=== PATIENT | female | born 1960 | race Caucasian/White ===

== ENCOUNTER 2016-11-28 14:08 | Inpatient (IN) | payer MEDICAID, OTHER ==
[2016-11-28 15:01] LABS: Hematocrit 40 % (35-47); Hemoglobin 12.9 g/dl (12.0-16.0); Mean Corpuscular HGB Conc 33 g/dl (31-36); Mean Corpuscular Hemoglobin 27 pg (27-31); Mean Corpuscular Volume 84 fL (80-97); Mean Platelet Volume 8 um3 (7.4-10.4); Red Blood Count 4.73 10^6/ul (4.0-5.4); Red Cell Distribution Width 13 % (10.5-15); White Blood Count 6.3 10^3/ul (3.5-10.8)
[2016-11-28 15:04] LABS: Urine Bilirubin Negative (Negative); Urine Glucose Negative (Negative); Urine Nitrite Negative (Negative)
[2016-11-28 15:18] LABS: ALT 14 U/L (7-52); AST 16 U/L (13-39); Albumin 4.3 g/dL (3.2-5.2); Alkaline Phosphatase 72 U/L (34-104); Anion Gap 6 mmol/L (2-11); BUN/Creatinine Ratio 14.4 (8-20); Blood Urea Nitrogen 13 mg/dL (6-24); CO2 Carbon Dioxide 27 mmol/L (22-32); Calcium 9.6 mg/dL (8.6-10.3); Chloride 99 mmol/L (101-111); EGFR African American 83.6 (>60); Globulin 2.8 g/dL (2-4); Glucose 98 mg/dL (70-100); Potassium 3.8 mmol/L (3.5-5.0); Sodium 132 mmol/L (133-145); Total Protein 7.1 g/dL (6.4-8.9)
[2016-11-28 15:24] LABS: Benzodiazepine Urine Screen None Detected (None Detect)
[2016-11-28 15:38] LABS: Acetaminophen < 15 mcg/mL; Alcohol < 10 mg/dL (<10); Salicylate < 2.50 mg/dL (<30)
[2016-11-28 15:48] LABS: TSH (Thyroid Stimulating Horm) 0.58 mcIU/mL (0.34-5.60)
[2016-11-28] MEDS ORDERED: Al Hydrox/Mg Hydrox/Simet LIQ* 30 ML UDC PO PRN (15:57)
[2016-11-28] MEDS ORDERED: Nicotine Inhaler* 10 MG AMP INH PRN (15:57)
[2016-11-28] MEDS ORDERED: Mouth Piece, Nicotine* 1 EACH CARTRIDGE INH ONE (18:00)
[2016-11-28] MEDS ORDERED: QUETIAPINE FUMARATE 800 MG PO SCH (21:00)
[2016-11-28] MEDS: QUEtiapine TAB* 300 MG PO SCH (21:23)
[2016-11-28] MEDS: QUEtiapine TAB* 100 MG PO SCH (21:24)
[2016-11-29] MEDS ORDERED: Levothyroxine TAB* 100 MCG TAB PO SCH (06:00)
[2016-11-29] MEDS: Venlafaxine EXT RELEASE CAP* 75 MG PO SCH (09:00)
[2016-11-29] MEDS: Vitamin THERAPEUTIC TAB PO SCH (09:10)
[2016-11-29] MEDS: Docusate CAP* 100 MG PO SCH ×2 (11:53→21:29)
[2016-11-29] MEDS: QUEtiapine TAB* 100 MG PO SCH ×2 (11:53→21:32)
--- NOTE | 2016-11-29 13:03 | HP ---
HISTORY AND PHYSICAL: DATE OF ADMISSION: 11/29/16 IDENTIFYING DATA: Nadege Burrell is a 56-year-old domiciled mentally disabled female with history of chronic psychotic disorder, depression, suicidal behavior , and multiple psychiatric hospitalizations. She is admitted to the psychiatric unit about 6 months after her last psychiatric admission, having come to the emergency room by ambulance with chief complaint, "I just don't want to live any more." HISTORY OF PRESENT ILLNESS: Nadege reports struggling basically the entire interval since her last psychiatric hospitalization, saying that she has a hard time getting out and functioning and doing things, hard time socializing, and has felt generally depressed and not motivated. She had more difficulty this month after her mother from a medical illness. She reported a lot of reunion fantasies, feeling like if she , she would be with her mother. She endorsed a lot of psychotic symptoms too. Initially she said she was "sleep - walking" and ended up in neighbor's house, but she told me that she felt like she was hearing the voice of an [place] spirit that was commanding her to do things and the spirit said it would take care of her. In the emergency room, she reported putting a belt around her neck and trying to choke herself and then going to the mental health clinic. She said that she had hallucination of "voices" that said they were the " committee" and they threatened her that if she did not take her own life, someone else would kill her. She reports low energy, hopelessness, helplessness, and feelings of worthlessness at times. She additionally reported moderate anxiety. She denied other mental symptoms or new health problems. She denied use of alcohol or drugs. She reported adherence with her medications in clinic visits and was somewhat hopeful that she could get better in the hospital. PREVIOUS PSYCHIATRIC HISTORY: Chronic psychotic disorder. First psychiatric hospitalization in 1992 due to depression and thoughts of suicide, has had about 10 other psychiatric hospitalizations including state hospital treatment. She has had diagnosis of schizophrenia, chronic paranoid type. She has a history of para-suicidal behavior and self-cutting. She has a history of ECT treatment, which may have been helpful but resulted in some memory problems. Previous medication trials included Latuda, lorazepam, Wellbutrin, risperidone, clozapine. PAST MEDICAL HISTORY: History of Tamara's thyroiditis and subsequent hypothyroidism. DRUG ALLERGIES: CLOZAPINE, CODEINE, DOXYCYCLINE, IBUPROFEN, PENICILLINS. SUBSTANCE USE HISTORY: She has denied alcohol or drug use on recent evaluations. FAMILY PSYCHIATRIC HISTORY: by suicide in maternal great-grandfather and maternal great-aunt. SOCIAL HISTORY: Nadege was born in [place]. Her parents when she was 4. Her mother recently . Her mother was a nurse in the [employer] and father was a army helicopter pilot. She is the third of 4 children. She had an older brother, an older sister, and a younger sister. She graduated from high school and has had odd jobs in the past. She has never and has no children. Over the last decade, she has had a significant other in her life. She resides alone and enjoys reading as a pastime. REVIEW OF SYSTEMS: Negative for neurological symptoms, seizures, respiratory difficulties or chest pain. Negative for syncope, negative for gastrointestinal distress, musculoskeletal problems, apart from a swollen knuckle on her right hand and some aches and pains, and negative for skin problems. She reported a couple of falls. PHYSICAL ASSESSMENT: VITAL SIGNS: Temperature is 98.2, blood pressure 112/67, pulse 66, respiratory rate 178. PHYSICAL EXAMINATION Deferred. Nadege declined the examination citing lack of subjective need and her own preference. This is a reasonable refusal in a healthy person and does not require followup. She has been medically cleared for psychiatric hospitalization. MENTAL STATUS EXAMINATION: Well-developed and nourished, middle-aged female, who is fairly well-kempt with normal hygiene in hospital scrub clothing. She has decreased psychomotor activity and is somewhat psychotically related and needy. She maintains fair eye contact. Speech is terse and nonspontaneous with some longer latencies at times. Mood is "concerned." Affect is tense and mildly dysphoric. Thought process is impoverished. Thought content significant for paranoid-type ideation, endorsement of recent delusional fantasy, and hallucination. There are passive wishes and reunion fantasies. There is no homicidal ideation. Sensorium is currently clear, but she did have recent "voices." She is alert and oriented x3. Insight and judgment is poor, and impulse control is intact. ADMISSION LABORATORY STUDIES: CBC was normal. Comprehensive panel had sodium of 131 and chloride at 99. TSH was normal. Urinalysis had specific gravity of 1.002 and toxicology screen was negative for Tylenol, alcohol, or salicylates. Urine drug screen was negative. CLINICAL SUMMARY: A 56-year-old female with chronic psychotic disorder and chronic mood condition and mental disability. She has a history of parasuicidal behavior and self-injury along with a family history of suicide in 2 remote relatives. She generally has had poor result with medication and has had some apparent treatment resistant symptoms. She continues in a subacute period of impairment with the acute stress of her mother passing away recently, and she has depression, psychotic functioning, and psychotic informed behavior; along with suicidal ideation and report of recent suicidal gesturing with putting something around her neck. She requires psychiatric hospitalization for safety, stabilization and treatment plan. ADMISSION DIAGNOSES: 1. Schizophrenia, chronic paranoid type. 2. Depressive disorder, not otherwise specified. TREATMENT PLAN: Admit to the psychiatric unit. Code status is full. Safety checks every 15-minute intervals. Initiate comprehensive, group, milieu, and individual psychotherapeutic support. Medication management will involve continuing Nadege's outpatient medication regimen as follows: 1. Wellbutrin 150 mg p.o. q.a.m. (XL formula). 2. Colace 100 mg b.i.d. 3. Levothyroxine 100 mcg daily. 4. Quetiapine 200 mg q.a.m. and 800 mg q. bedtime. 5. Venlafaxine XR 150 mg per day. [id number]/[facility] #: [id number] MTDD
[2016-11-29] MEDS ORDERED: QUETIAPINE FUMARATE 800 MG PO SCH (21:00)
[2016-11-29] MEDS: QUEtiapine TAB* 300 MG PO SCH (21:31)
[2016-11-29] MEDS: Acetaminophen TAB* 325 MG PO PRN (22:58)
[2016-11-30] MEDS: Levothyroxine TAB* 100 MCG TAB PO SCH (06:15)
[2016-11-30] MEDS: QUEtiapine TAB* 100 MG PO SCH ×2 (09:35→21:43)
[2016-11-30] MEDS: Vitamin THERAPEUTIC TAB PO SCH (09:35)
[2016-11-30] MEDS: Venlafaxine EXT RELEASE CAP* 75 MG PO SCH (09:36)
[2016-11-30] MEDS: Docusate CAP* 100 MG PO SCH ×2 (09:36→21:43)
[2016-11-30] MEDS: BuPROPion XL* 150 MG TAB.XL PO SCH (09:37)
--- NOTE | 2016-11-30 13:49 | PN ---
Subjective - Subjective Service Type: 56974 Hosp care 15 min low complexity Subjective: Today I had the opportunity to visit Amelia on follow-up. She was quite tearful and discussed how she is feeling guilty secondary to not being present in [place] when her mother . She Admits to intermittent suicidal ideation, but denies intent or plan. She did report good sleep, but reports poor appetite. Objective - Appearance Dysmorphic Features: No Hygiene: Normal Grooming: Well Kept - Behavior Psychomotor Activities: Normal Exhibits Abnormal Movement: No - Attitude and Relatedness Attitude and Relatedness: Cooperative Eye Contact: Fair - Speech Quality: Unpressured Latencies: Normal Quantity: Appropriate - Mood Patient's Decription of Mood: "Sad" - Affect Observed Affect: Tearful Affect Consistent with: Dysphoria - Thought Process Patient's Thought Process: Tangential - at times Thought Content: Yes Passive Wish, No Suicidal Planning, No Homicidal Ideation, No Paranoid Ideation - Sensorium Type of Hallucinations: Visual: No - denies, Auditory: No - denies, Command: No - denies - Level of Consciousness Level of Consciousness: Alert Orientation: Yes Intact - Impulse Control Impulse Control: Intact - Insight and Judgement Insight and Judgement: Poor Assessment - Assessment Clinical Impression: Patient continues to be tearful, articulates feelings of guilt. Good PO medication compliance. Plan - Plan Treatment Plan: Name: AMELIA CASTRO Birthdate: 1960 [id number] Medications: Current Medications Acetaminophen (Tylenol Tab*) 650 mg PO Q4H PRN PRN Reason: for pain; or Temp >101 F Last Admin: 11/29/16 22:58 Dose: 650 mg Al Hydrox/Mg Hydrox/Simethicone (Maalox Plus*) 30 ml PO Q4H PRN PRN Reason: INDIGESTION Bupropion HCl (Wellbutrin Xl *) 150 mg PO QAM [facility] PRN Reason: Protocol Last Admin: 11/30/16 09:37 Dose: 150 mg Docusate Sodium (Colace Cap*) 100 mg PO BID [facility] Last Admin: 11/30/16 09:36 Dose: 100 mg Levothyroxine Sodium (Synthroid Tab*) 100 mcg PO DAILY@0600 [facility] Last Admin: 11/30/16 06:15 Dose: 100 mcg Lorazepam (Ativan Tab(*)) 0.5 mg PO BID PRN PRN Reason: ANXIETY Multivitamins (Theragran Tab*) 1 tab PO DAILY [facility] Last Admin: 11/30/16 09:35 Dose: 1 tab Nicotine (Nicotine Inhaler*) 10 mg INH Q2H PRN PRN Reason: CRAVING Quetiapine Fumarate (Seroquel Tab*) 600 mg PO BEDTIME [facility] Last Admin: 11/29/16 21:31 Dose: 600 mg Quetiapine Fumarate (Seroquel Tab*) 200 mg PO BEDTIME [facility] Last Admin: 11/29/16 21:32 Dose: Not Given Quetiapine Fumarate (Seroquel Tab*) 200 mg PO QAM [facility] Last Admin: 11/30/16 09:35 Dose: 200 mg Venlafaxine HCl (Effexor Xr Cap*) 150 mg PO DAILY [facility] Last Admin: 11/30/16 09:36 Dose: 150 mg - Discharge Plan Additional Comments: Today, Amelia is willing to consider journaling as an attempt to address her feelings.
[2016-11-30] MEDS: QUEtiapine TAB* 300 MG PO SCH (21:44)
[2016-11-30] MEDS: Acetaminophen TAB* 325 MG PO PRN (23:43)
[2016-12-01] MEDS: Levothyroxine TAB* 100 MCG TAB PO SCH (06:30)
[2016-12-01] MEDS: Vitamin THERAPEUTIC TAB PO SCH (08:56)
[2016-12-01] MEDS: QUEtiapine TAB* 100 MG PO SCH ×2 (08:56→21:33)
[2016-12-01] MEDS: Docusate CAP* 100 MG PO SCH ×2 (08:56→21:33)
[2016-12-01] MEDS: BuPROPion XL* 150 MG TAB.XL PO SCH (08:57)
[2016-12-01] MEDS: Venlafaxine EXT RELEASE CAP* 75 MG PO SCH (08:57)
[2016-12-01] MEDS: QUEtiapine TAB* 300 MG PO SCH (21:33)
[2016-12-01] MEDS: LORazepam TAB(*) 0.5 MG PO PRN (22:30)
[2016-12-02] MEDS: Levothyroxine TAB* 100 MCG TAB PO SCH (06:18)
[2016-12-02] MEDS: BuPROPion XL* 150 MG TAB.XL PO SCH (08:58)
[2016-12-02] MEDS: Venlafaxine EXT RELEASE CAP* 75 MG PO SCH (08:59)
[2016-12-02] MEDS: QUEtiapine TAB* 100 MG PO SCH ×2 (08:59→22:04)
[2016-12-02] MEDS: Vitamin THERAPEUTIC TAB PO SCH (08:59)
[2016-12-02] MEDS: Docusate CAP* 100 MG PO SCH ×2 (08:59→22:03)
--- NOTE | 2016-12-02 10:33 | PN ---
Subjective - Subjective Service Type: 60242 Hosp care 15 min low complexity Subjective: Amelia reports "not doing well." She notes a decent unit experience - getting along okay with peers and getting support from program. She ruminates on her mother's passing - expressing guilt that her siblings were by mom's side and she was not. She denies current plans for suicide, but spontaneously talks about a lot of permissive ideas about it, such as solving her problems in the next life due to reincarnation. She denies current hallucinations, and made no delusional comments. She denied current ideas that others are monitoring or controlling her. Objective - Appearance Appearance: Well Developed/Nourished Hygiene: Normal Grooming: Well Kept - Behavior Psychomotor Activities: Abnormal-Decreased - Attitude and Relatedness Attitude and Relatedness: Superficially Cooperative Eye Contact: Fair - Speech Quality: Unpressured Latencies: Long Quantity: Appropriate - Mood Patient's Decription of Mood: "Sad" - Affect Observed Affect: Non-labile Affect Consistent with: Dysphoria - Thought Process Patient's Thought Process: Impoverished Thought Content: Yes Passive Wish, No Suicidal Planning, No Homicidal Ideation, No Paranoid Ideation - Sensorium Experiencing Hallucinations: No, Sensorium is Clear - Level of Consciousness Level of Consciousness: Alert - Impulse Control Impulse Control: Intact - Insight and Judgement Insight and Judgement: Poor Assessment - Assessment Merits Inpatient Hospitalization: For Immediate Safety, For Stabilization, To Initiate Treatment, For Ongoing Evaluation, For Discharge Planning, Pending Safe DC Plan Inpatient DSM-IV Dx: 1. Schizophrenia, chronic paranoid type. 2. Depressive disorder, not otherwise specified. Clinical Impression: 56-year-old female with chronic psychotic disorder and chronic mood condition and mental disability. She has a history of parasuicidal behavior and self- injury along with a family history of suicide in 2 remote relatives. She generally has had poor result with medication and has had some apparent treatment resistant symptoms. She has had difficulties over the last year with ongoing impairment; and is dealing with her mother passing away recently. Concern centered on her depression, psychotic functioning, and psychosis-driven behavior (entered a neighbor's home at night because "a spirit" was directing her to through hallucinations; along with suicidal ideation and report of recent suicidal gesturing with putting something around her neck. Stabilizing here. Safe on checks, adherent with routines, and engaged in programming. Symptoms continue, with depressed mood, morbid ruminations. Amelia has low psychological barriers to suicide. Psychosis appears less overt now. Medication management continues the outpatient medication regimen of Wellbutrin 150 mg p.o. q.a.m., Colace 100 mg b.i.d., Levothyroxine 100 mcg daily, Quetiapine 200 mg q.a.m. and 800 mg q. bedtime, and Venlafaxine XR 150 mg per day. Plan - Plan Treatment Plan: Name: AMELIA CASTRO Birthdate: 1960 [id number] Continued Medication Management: Continue Outpt Medication Medications: Current Medications Acetaminophen (Tylenol Tab*) 650 mg PO Q4H PRN PRN Reason: for pain; or Temp >101 F Last Admin: 11/30/16 23:43 Dose: 650 mg Al Hydrox/Mg Hydrox/Simethicone (Maalox Plus*) 30 ml PO Q4H PRN PRN Reason: INDIGESTION Bupropion HCl (Wellbutrin Xl *) 150 mg PO QAM [facility] PRN Reason: Protocol Last Admin: 12/02/16 08:58 Dose: 150 mg Docusate Sodium (Colace Cap*) 100 mg PO BID [facility] Last Admin: 12/02/16 08:59 Dose: 100 mg Levothyroxine Sodium (Synthroid Tab*) 100 mcg PO DAILY@0600 [facility] Last Admin: 12/02/16 06:18 Dose: 100 mcg Lorazepam (Ativan Tab(*)) 0.5 mg PO BID PRN PRN Reason: ANXIETY Last Admin: 12/01/16 22:30 Dose: 0.5 mg Multivitamins (Theragran Tab*) 1 tab PO DAILY [facility] Last Admin: 12/02/16 08:59 Dose: 1 tab Nicotine (Nicotine Inhaler*) 10 mg INH Q2H PRN PRN Reason: CRAVING Quetiapine Fumarate (Seroquel Tab*) 600 mg PO BEDTIME [facility] Last Admin: 12/01/16 21:33 Dose: 600 mg Quetiapine Fumarate (Seroquel Tab*) 200 mg PO BEDTIME [facility] Last Admin: 12/01/16 21:33 Dose: 200 mg Quetiapine Fumarate (Seroquel Tab*) 200 mg PO QAM [facility] Last Admin: 12/02/16 08:59 Dose: 200 mg Venlafaxine HCl (Effexor Xr Cap*) 150 mg PO DAILY [facility] Last Admin: 12/02/16 08:59 Dose: 150 mg - Discharge Plan Discharge Plan: Outpatient Follow Up
--- NOTE | 2016-12-02 11:04 | PN ---
MHU: Group Therapy Note - Service Type Service Type: [id number] Group Psychotherapy - Cognitive Behavioral Group Therapy ( CBT):Patient was attentive and participatory in CBT programming this morning, and remained in good behavioral control. Patient expressed positive insights regarding relevant treatment interventions and goals.
[2016-12-02] MEDS: QUEtiapine TAB* 300 MG PO SCH (22:03)
[2016-12-03] MEDS: Levothyroxine TAB* 100 MCG TAB PO SCH (07:33)
[2016-12-03] MEDS: Docusate CAP* 100 MG PO SCH ×2 (08:58→21:47)
[2016-12-03] MEDS: QUEtiapine TAB* 100 MG PO SCH ×2 (08:58→21:47)
[2016-12-03] MEDS: Venlafaxine EXT RELEASE CAP* 75 MG PO SCH (08:58)
[2016-12-03] MEDS: BuPROPion XL* 150 MG TAB.XL PO SCH (08:58)
[2016-12-03] MEDS: Vitamin THERAPEUTIC TAB PO SCH (08:59)
--- NOTE | 2016-12-03 11:23 | PN ---
MHU: Group Therapy Note - Service Type Service Type: [id number] Group Psychotherapy - Cognitive Behavioral Group Therapy ( CBT):Patient attended CBT programming this morning and presented with flat affect that did not vary with discussion. Although responsive to direct prompts to respond to questions, patient did not engage in spontaneous conversation.
--- NOTE | 2016-12-03 12:28 | PN ---
Subjective - Subjective Service Type: 83255 Hosp care 25 min moderate complexity Subjective: Amelia reports continued expectation that she might kill herself by jumping off a parking garage if she were to leave today. She complains of urinary retention and constipation. She also complains of oversedation on current meds , and requests that her midday dose of Seroquel be taken away. She reports that 'this is my fault', referring to her current psychiatric illness. By the end of our interview, she was speaking of taking responsibility for herself rather than blaming herself, but still conveyed the sense of poor self-esteem in that reframing. Objective - Appearance Appearance: Well Developed/Nourished Dysmorphic Features: No Hygiene: Normal Grooming: Fairly Well Kept - Behavior Psychomotor Activities: Abnormal-Decreased Exhibits Abnormal Movement: No - Attitude and Relatedness Attitude and Relatedness: Cooperative Eye Contact: Fair - Speech Quality: Unpressured Latencies: Normal Quantity: Appropriate - Mood Patient's Decription of Mood: "Not so good" - Affect Observed Affect: Depressed Affect Consistent with: Dysphoria - Thought Process Patient's Thought Process: Coherent, Goal Directed Thought Content: Yes Passive Wish, Yes Suicidal Planning, Yes Paranoid Ideation - feels she is being surveiled beyond requirements of psychiatric care , No Homicidal Ideation - Sensorium Experiencing Hallucinations: Yes Type of Hallucinations: Visual: Yes - seeing her siblings in people here, Auditory: Yes - unable to specify, Command: No - Level of Consciousness Level of Consciousness: Alert Orientation: Yes Intact, Yes Orientated to Time, Yes Orientated to Place, Yes Orientated to Person - Impulse Control Impulse Control: Intact - Insight and Judgement Insight and Judgement: Poor - Group Participation Particating in Group Activities: Yes - Medication Management Medication Management Adherence: Yes Assessment - Assessment Merits Inpatient Hospitalization: For Immediate Safety, For Stabilization, For Ongoing Evaluation, For Discharge Planning, Pending Safe DC Plan Inpatient DSM-IV Dx: 1. Schizophrenia, chronic paranoid type. 2. Depressive disorder, not otherwise specified. Clinical Impression: Amelia Castro is a 56-year-old woman with chronic psychotic and mood disorder and mental disability. She has been admitted due to safety concerns raised by suicidal thoughts with plan to jump from a parking garage. She has a history of parasuicidal behavior. She has had poor response to medications with treatment resistant symptoms. Her mother recently , likely a [place] stressor in current decompensation. Today she reports continued anticipation of attempting suicide if she were to leave, and continued low mood and psychotic symptoms. She requires continued hospitalization for safety, further assessment, and treatment. Plan - Plan Treatment Plan: Name: AMELIA CASTRO Birthdate: 1960 [id number] Continue current meds (no midday Seroquel to d/c). Bladder scan for post-void residual. Add fiber as psyllium per pt request agains c/o constipation. Monitor MS and safety. Medications: Current Medications Acetaminophen (Tylenol Tab*) 650 mg PO Q4H PRN PRN Reason: for pain; or Temp >101 F Last Admin: 11/30/16 23:43 Dose: 650 mg Al Hydrox/Mg Hydrox/Simethicone (Maalox Plus*) 30 ml PO Q4H PRN PRN Reason: INDIGESTION Bupropion HCl (Wellbutrin Xl *) 150 mg PO QAM [facility] PRN Reason: Protocol Last Admin: 12/03/16 08:58 Dose: 150 mg Docusate Sodium (Colace Cap*) 100 mg PO BID [facility] Last Admin: 12/03/16 08:58 Dose: 100 mg Levothyroxine Sodium (Synthroid Tab*) 100 mcg PO DAILY@0600 [facility] Last Admin: 12/03/16 07:33 Dose: 100 mcg Lorazepam (Ativan Tab(*)) 0.5 mg PO BID PRN PRN Reason: ANXIETY Last Admin: 12/01/16 22:30 Dose: 0.5 mg Multivitamins (Theragran Tab*) 1 tab PO DAILY [facility] Last Admin: 12/03/16 08:59 Dose: 1 tab Nicotine (Nicotine Inhaler*) 10 mg INH Q2H PRN PRN Reason: CRAVING Quetiapine Fumarate (Seroquel Tab*) 600 mg PO BEDTIME [facility] Last Admin: 12/02/16 22:03 Dose: 600 mg Quetiapine Fumarate (Seroquel Tab*) 200 mg PO BEDTIME [facility] Last Admin: 12/02/16 22:04 Dose: 200 mg Quetiapine Fumarate (Seroquel Tab*) 200 mg PO QAM [facility] Last Admin: 12/03/16 08:58 Dose: 200 mg Venlafaxine HCl (Effexor Xr Cap*) 150 mg PO DAILY [facility] Last Admin: 12/03/16 08:58 Dose: 150 mg - Discharge Plan Discharge Plan: Outpatient Follow Up Outpatient Program: Denise Chamberlain [facility]
[2016-12-03] MEDS ORDERED: Magnesium CITRATE* 300 ML BTL PO ONE (16:34)
[2016-12-03] MEDS: Psyllium PAK PO SCH (20:30)
[2016-12-03] MEDS: QUEtiapine TAB* 300 MG PO SCH (21:47)
[2016-12-04] MEDS: Levothyroxine TAB* 100 MCG TAB PO SCH (05:45)
[2016-12-04] MEDS: Docusate CAP* 100 MG PO SCH ×2 (08:35→21:56)
[2016-12-04] MEDS: Vitamin THERAPEUTIC TAB PO SCH (08:35)
[2016-12-04] MEDS: BuPROPion XL* 150 MG TAB.XL PO SCH (08:35)
[2016-12-04] MEDS: Venlafaxine EXT RELEASE CAP* 75 MG PO SCH (08:36)
[2016-12-04] MEDS: LORazepam TAB(*) 0.5 MG PO PRN (08:37)
[2016-12-04] MEDS: QUEtiapine TAB* 100 MG PO SCH ×2 (08:37→21:58)
--- NOTE | 2016-12-04 11:25 | PN ---
MHU: Group Therapy Note - Service Type Service Type: [id number] Group Psychotherapy - Cognitive Behavioral Group Therapy ( CBT):Patient was attentive and participatory in CBT programming this morning, and remained in good behavioral control. Patient expressed positive insights regarding relevant treatment interventions and goals.
[2016-12-04] MEDS: Psyllium PAK PO SCH (12:46)
--- NOTE | 2016-12-04 16:52 | PN ---
Subjective - Subjective Service Type: [id number] Hosp care 15 min low complexity Subjective: Amelia reports continued sadness at the of her mother just a few weeks ago, but overall better mood despite this. She reports she last had SI today when alone in her room. She complains of right shoulder pain, with little effect of mag citrate on constipation. [facility] reports that urinary retention has improved. She is unsure if Wellbutrin has helped iwth depressive symptoms, and agrees to try discontinuation of this med that can sometimes lead to constipation and urinary retention. Objective - Appearance Appearance: Well Developed/Nourished Dysmorphic Features: No Hygiene: Normal Grooming: Well Kept - Behavior Psychomotor Activities: Normal Exhibits Abnormal Movement: No - Attitude and Relatedness Attitude and Relatedness: Cooperative Eye Contact: Good - Speech Quality: Unpressured Latencies: Normal Quantity: Appropriate - Mood Patient's Decription of Mood: "Better" - Affect Observed Affect: Depressed Affect Consistent with: Dysphoria - Thought Process Patient's Thought Process: Coherent, Goal Directed Thought Content: Yes Passive Wish, Yes Suicidal Planning - to leap or OD, Yes Paranoid Ideation - with report taht this relates somehow to sadness about mother's , No Homicidal Ideation - Sensorium Experiencing Hallucinations: No, Sensorium is Clear Type of Hallucinations: Visual: No, Auditory: No, Command: No - Level of Consciousness Level of Consciousness: Alert Orientation: Yes Intact, Yes Orientated to Time, Yes Orientated to Place, Yes Orientated to Person - Impulse Control Impulse Control: Intact - Insight and Judgement Insight and Judgement: Poor - Group Participation Particating in Group Activities: Yes - Medication Management Medication Management Adherence: Yes Assessment - Assessment Merits Inpatient Hospitalization: For Immediate Safety, For Stabilization, For Discharge Planning, Pending Safe DC Plan Inpatient DSM-IV Dx: 1. Schizophrenia, chronic paranoid type. 2. Depressive disorder, not otherwise specified. Clinical Impression: Amelia Castro is a 56-year-old woman with chronic psychotic and mood disorder and mental disability. She has been admitted due to safety concerns raised by suicidal thoughts with plan to jump from a parking garage. She has a history of parasuicidal behavior. She has had poor response to medications with treatment resistant symptoms. Her mother recently , likely a [place] stressor in current decompensation. Today she reports continued anticipation of attempting suicide if she were to leave, and continued low mood and psychotic symptoms. She requires continued hospitalization for safety, further assessment, and treatment. 12.04.16 Amelia reports continued sadness over mother's with ongoing SI, but somewhat improved mood. Urinary retention improved, little improvement re constipation, also c/o R shoulder pain. Plan - Plan Treatment Plan: Name: AMELIA CASTRO Birthdate: 1960 [id number] Continue current meds except Wellbutrin. Monitor MS and safety. Monitor physical complaints and consider increased bowel regimen if constipation continues. Medications: Current Medications Acetaminophen (Tylenol Tab*) 650 mg PO Q4H PRN PRN Reason: for pain; or Temp >101 F Last Admin: 11/30/16 23:43 Dose: 650 mg Al Hydrox/Mg Hydrox/Simethicone (Maalox Plus*) 30 ml PO Q4H PRN PRN Reason: INDIGESTION Bupropion HCl (Wellbutrin Xl *) 150 mg PO QAM [facility] PRN Reason: Protocol Last Admin: 12/04/16 08:35 Dose: 150 mg Docusate Sodium (Colace Cap*) 100 mg PO BID [facility] Last Admin: 12/04/16 08:35 Dose: 100 mg Levothyroxine Sodium (Synthroid Tab*) 100 mcg PO DAILY@0600 [facility] Last Admin: 12/04/16 05:45 Dose: 100 mcg Lorazepam (Ativan Tab(*)) 0.5 mg PO BID PRN PRN Reason: ANXIETY Last Admin: 12/04/16 08:37 Dose: 0.5 mg Multivitamins (Theragran Tab*) 1 tab PO DAILY [facility] Last Admin: 12/04/16 08:35 Dose: 1 tab Nicotine (Nicotine Inhaler*) 10 mg INH Q2H PRN PRN Reason: CRAVING Psyllium Hydrophilic Mucilloid (Metamucil Martin*) 1 pkt PO 1400 [facility] Last Admin: 12/04/16 12:46 Dose: 1 pkt Quetiapine Fumarate (Seroquel Tab*) 600 mg PO BEDTIME [facility] Last Admin: 12/03/16 21:47 Dose: 600 mg Quetiapine Fumarate (Seroquel Tab*) 200 mg PO BEDTIME [facility] Last Admin: 12/03/16 21:47 Dose: 200 mg Quetiapine Fumarate (Seroquel Tab*) 200 mg PO QAM [facility] Last Admin: 12/04/16 08:37 Dose: 200 mg Venlafaxine HCl (Effexor Xr Cap*) 150 mg PO DAILY [facility] Last Admin: 12/04/16 08:36 Dose: 150 mg - Discharge Plan Discharge Plan: Outpatient Follow Up
[2016-12-04] MEDS: QUEtiapine TAB* 300 MG PO SCH (21:56)
[2016-12-05] MEDS: Levothyroxine TAB* 100 MCG TAB PO SCH (05:36)
[2016-12-05] MEDS: Vitamin THERAPEUTIC TAB PO SCH (09:08)
[2016-12-05] MEDS: QUEtiapine TAB* 100 MG PO SCH ×2 (09:09→22:36)
[2016-12-05] MEDS: Docusate CAP* 100 MG PO SCH ×2 (09:09→22:36)
[2016-12-05] MEDS: Venlafaxine EXT RELEASE CAP* 75 MG PO SCH (09:09)
--- NOTE | 2016-12-05 11:09 | PN ---
MHU: Group Therapy Note - Service Type Service Type: [id number] Group Psychotherapy - Cognitive Behavioral Group Therapy ( CBT):Patient was attentive and participatory in CBT programming this morning, and remained in good behavioral control. Patient expressed positive insights regarding relevant treatment interventions and goals. Delia reports continuing to struggle with depression, but is more spontaneous in conversation and interactive with peers.
--- NOTE | 2016-12-05 11:29 | PN ---
Subjective - Subjective Service Type: [id number] Hosp care 15 min low complexity Subjective: Amelia reports "a little" progress here, with difficulty engaging with peers. She notes ongoing emotional pain, sadness, and "some" suicidal thoughts from time to time. Is not sure if she is "hearing voices" or not. She made no delusional comments , but had very long latency, and became tearful before starting to say how she is doing. Objective - Appearance Appearance: Well Developed/Nourished Hygiene: Normal Grooming: Well Kept - Behavior Psychomotor Activities: Abnormal-Decreased - Attitude and Relatedness Attitude and Relatedness: Needy Eye Contact: Fair - Speech Quality: Unpressured Latencies: Long Quantity: Appropriate - Mood Patient's Decription of Mood: "Terrible" - Affect Observed Affect: Constricted Affect Consistent with: Dysphoria - Thought Process Patient's Thought Process: Impoverished - blocked Thought Content: No Passive Wish, No Suicidal Planning, No Homicidal Ideation, No Paranoid Ideation - Sensorium Experiencing Hallucinations: No, Sensorium is Clear - Level of Consciousness Level of Consciousness: Alert - Impulse Control Impulse Control: Intact - Insight and Judgement Insight and Judgement: Fair Assessment - Assessment Merits Inpatient Hospitalization: For Immediate Safety, For Stabilization, To Initiate Treatment, For Ongoing Evaluation, For Discharge Planning Inpatient DSM-IV Dx: 1. Schizophrenia, chronic paranoid type. 2. Depressive disorder, not otherwise specified. Clinical Impression: 56-year-old female with chronic psychotic disorder and chronic mood condition and mental disability. She has a history of parasuicidal behavior and self- injury along with a family history of suicide in 2 remote relatives. She generally has had poor result with medication and has had some apparent treatment resistant symptoms. She has had difficulties over the last year with ongoing impairment; and is dealing with her mother passing away recently. Concern centered on her depression, psychotic functioning, and psychosis-driven behavior (entered a neighbor's home at night because "a spirit" was directing her to through hallucinations; along with suicidal ideation and report of recent suicidal gesturing with putting something around her neck. Stable here behaviorally. But continues symptomatic and impaired, off her apparent better baseline. She is safe on checks, adherent with routines, and engaged in programming. Symptoms continue, with emotional pain, depressed mood, morbid ruminations, and some suicidal thought. Amelia has described low psychological barriers to suicide. Psychosis appears less overt now, but her thinking is blocked (disordered). Medication management continues the outpatient medication regimen of Wellbutrin 150 mg p.o. q.a.m., Colace 100 mg b.i.d., Levothyroxine 100 mcg daily, Quetiapine 200 mg q.a.m. and 800 mg q. bedtime, and Venlafaxine XR 150 mg per day. Plan - Plan Treatment Plan: Name: AMELIA CASTRO Birthdate: 1960 [id number] Continued Medication Management: Continue Outpt Medication Medications: Current Medications Acetaminophen (Tylenol Tab*) 650 mg PO Q4H PRN PRN Reason: for pain; or Temp >101 F Last Admin: 11/30/16 23:43 Dose: 650 mg Al Hydrox/Mg Hydrox/Simethicone (Maalox Plus*) 30 ml PO Q4H PRN PRN Reason: INDIGESTION Docusate Sodium (Colace Cap*) 100 mg PO BID [facility] Last Admin: 12/05/16 09:09 Dose: 100 mg Levothyroxine Sodium (Synthroid Tab*) 100 mcg PO DAILY@0600 [facility] Last Admin: 12/05/16 05:36 Dose: 100 mcg Lorazepam (Ativan Tab(*)) 0.5 mg PO BID PRN PRN Reason: ANXIETY Last Admin: 12/04/16 08:37 Dose: 0.5 mg Multivitamins (Theragran Tab*) 1 tab PO DAILY [facility] Last Admin: 12/05/16 09:08 Dose: 1 tab Nicotine (Nicotine Inhaler*) 10 mg INH Q2H PRN PRN Reason: CRAVING Psyllium Hydrophilic Mucilloid (Metamucil Martin*) 1 pkt PO 1400 [facility] Last Admin: 12/04/16 12:46 Dose: 1 pkt Quetiapine Fumarate (Seroquel Tab*) 600 mg PO BEDTIME [facility] Last Admin: 12/04/16 21:56 Dose: 600 mg Quetiapine Fumarate (Seroquel Tab*) 200 mg PO BEDTIME [facility] Last Admin: 12/04/16 21:58 Dose: Not Given Quetiapine Fumarate (Seroquel Tab*) 200 mg PO QAM [facility] Last Admin: 12/05/16 09:09 Dose: 200 mg Venlafaxine HCl (Effexor Xr Cap*) 150 mg PO DAILY [facility] Last Admin: 12/05/16 09:09 Dose: 150 mg - Discharge Plan Discharge Plan: Consider Longer Term Tx
[2016-12-05] MEDS: Psyllium PAK PO SCH (13:30)
[2016-12-05] MEDS: QUEtiapine TAB* 300 MG PO SCH (22:36)
[2016-12-06] MEDS: Levothyroxine TAB* 100 MCG TAB PO SCH (05:46)
[2016-12-06] MEDS: Vitamin THERAPEUTIC TAB PO SCH (08:40)
[2016-12-06] MEDS: Docusate CAP* 100 MG PO SCH ×2 (08:41→22:23)
[2016-12-06] MEDS: Venlafaxine EXT RELEASE CAP* 75 MG PO SCH (08:41)
[2016-12-06] MEDS: QUEtiapine TAB* 100 MG PO SCH ×2 (08:41→22:23)
[2016-12-06] MEDS: Psyllium PAK PO SCH (14:23)
--- NOTE | 2016-12-06 14:56 | PN ---
Subjective - Subjective Service Type: [id number] Hosp care 15 min low complexity Subjective: Amelia acknowledged scraping a cut into her wrist "a few days ago" - she said she wasn't sure if she was trying to end her life or deal with pain. She agrees to talk about self injury and suicidal urges with us, and acknowledged that ambivalence in how she feels about her providers could have been an obstacle to that. She reports mixed feelings about all aspects of her treatment, and some resentment towards providers, along with interest in [employer] as an alternative to mental health treatment. She was brighter, more talkative. She was morbid, saying she'd like an honorable way to and that she sees no peace in the world. We reviewed treatment options, expectations. Objective - Appearance Appearance: Well Developed/Nourished Hygiene: Normal Grooming: Well Kept - Behavior Psychomotor Activities: Abnormal-Decreased - Attitude and Relatedness Attitude and Relatedness: Needy - and help rejecting Eye Contact: Good - Speech Quality: Unpressured Latencies: Long Quantity: Copious - Mood Patient's Decription of Mood: "Sad" - Affect Observed Affect: Constricted Affect Consistent with: Dysphoria - Thought Process Patient's Thought Process: Coherent, Over Inclusive Thought Content: Yes Passive Wish, No Suicidal Planning, No Homicidal Ideation, No Paranoid Ideation - Sensorium Experiencing Hallucinations: No, Sensorium is Clear - Level of Consciousness Level of Consciousness: Alert - Impulse Control Impulse Control: Intact - Insight and Judgement Insight and Judgement: Poor Assessment - Assessment Merits Inpatient Hospitalization: For Immediate Safety, To Initiate Treatment, For Ongoing Evaluation, For Discharge Planning, Pending Safe DC Plan Inpatient DSM-IV Dx: 1. Schizophrenia, chronic paranoid type. 2. Depressive disorder, not otherwise specified. Clinical Impression: 56-year-old female with chronic psychotic disorder and chronic mood condition and mental disability. She has a history of parasuicidal behavior and self- injury along with a family history of suicide in 2 remote relatives. She generally has had poor result with medication and has had some apparent treatment resistant symptoms. She has had difficulties over the last year with ongoing impairment; and is dealing with her mother passing away recently. Concern centered on her depression, psychotic functioning, and psychosis-driven behavior (entered a neighbor's home at night because "a spirit" was directing her to through hallucinations; along with suicidal ideation and report of recent suicidal gesturing with putting something around her neck. Stable here behaviorally. But continues symptomatic and impaired, off her apparent better baseline. She has appeareds safe on checks, but revealed superficial wounds to her wrist inflicted several days ago. Based on her current status 12/06, with low agitation and intact overt control, routine (close) observation is appropriate. Symptoms continue, with emotional pain, depressed mood, morbid ruminations, and ongoing suicidal thoughts. Amelia has described low psychological barriers to suicide. Psychosis appears less overt now, but her thinking has blocked (disordered) - this is getting milder. Medication management continues the outpatient medication regimen of Wellbutrin 150 mg p.o. q.a.m., Colace 100 mg b.i.d., Levothyroxine 100 mcg daily, Quetiapine 200 mg q.a.m. and 800 mg q. bedtime, and Venlafaxine XR 150 mg per day. Plan - Plan Treatment Plan: Name: AMELIA CASTRO Birthdate: 1960 [id number] Continued Medication Management: Continue Outpt Medication Medications: Current Medications Acetaminophen (Tylenol Tab*) 650 mg PO Q4H PRN PRN Reason: for pain; or Temp >101 F Last Admin: 11/30/16 23:43 Dose: 650 mg Al Hydrox/Mg Hydrox/Simethicone (Maalox Plus*) 30 ml PO Q4H PRN PRN Reason: INDIGESTION Docusate Sodium (Colace Cap*) 100 mg PO BID [facility] Last Admin: 12/06/16 08:41 Dose: 100 mg Levothyroxine Sodium (Synthroid Tab*) 100 mcg PO DAILY@0600 [facility] Last Admin: 12/06/16 05:46 Dose: 100 mcg Lorazepam (Ativan Tab(*)) 0.5 mg PO BID PRN PRN Reason: ANXIETY Last Admin: 12/04/16 08:37 Dose: 0.5 mg Multivitamins (Theragran Tab*) 1 tab PO DAILY [facility] Last Admin: 12/06/16 08:40 Dose: 1 tab Nicotine (Nicotine Inhaler*) 10 mg INH Q2H PRN PRN Reason: CRAVING Psyllium Hydrophilic Mucilloid (Metamucil Martin*) 1 pkt PO 1400 [facility] Last Admin: 12/06/16 14:23 Dose: 1 pkt Quetiapine Fumarate (Seroquel Tab*) 600 mg PO BEDTIME [facility] Last Admin: 12/05/16 22:36 Dose: 600 mg Quetiapine Fumarate (Seroquel Tab*) 200 mg PO BEDTIME [facility] Last Admin: 12/05/16 22:36 Dose: Not Given Quetiapine Fumarate (Seroquel Tab*) 200 mg PO QAM [facility] Last Admin: 12/06/16 08:41 Dose: 200 mg Venlafaxine HCl (Effexor Xr Cap*) 150 mg PO DAILY [facility] Last Admin: 12/06/16 08:41 Dose: 150 mg - Discharge Plan Discharge Plan: Consider Longer Term Tx
[2016-12-06] MEDS: QUEtiapine TAB* 300 MG PO SCH (22:23)
[2016-12-07] MEDS: Levothyroxine TAB* 100 MCG TAB PO SCH (06:37)
[2016-12-07] MEDS: Docusate CAP* 100 MG PO SCH ×2 (08:48→22:28)
[2016-12-07] MEDS: Venlafaxine EXT RELEASE CAP* 75 MG PO SCH (08:48)
[2016-12-07] MEDS: Vitamin THERAPEUTIC TAB PO SCH (08:48)
[2016-12-07] MEDS: QUEtiapine TAB* 100 MG PO SCH ×2 (08:49→22:28)
[2016-12-07] MEDS: Psyllium PAK PO SCH (14:19)
[2016-12-07] MEDS: QUEtiapine TAB* 300 MG PO SCH (22:28)
[2016-12-08] MEDS: Levothyroxine TAB* 100 MCG TAB PO SCH (06:28)
[2016-12-08] MEDS: Venlafaxine EXT RELEASE CAP* 75 MG PO SCH (08:47)
[2016-12-08] MEDS: Docusate CAP* 100 MG PO SCH ×2 (08:47→21:51)
[2016-12-08] MEDS: Vitamin THERAPEUTIC TAB PO SCH (08:47)
[2016-12-08] MEDS: QUEtiapine TAB* 100 MG PO SCH ×2 (08:48→22:02)
[2016-12-08] MEDS: Psyllium PAK PO SCH (14:06)
[2016-12-08] MEDS: QUEtiapine TAB* 300 MG PO SCH (21:50)
[2016-12-09] MEDS: Levothyroxine TAB* 100 MCG TAB PO SCH (06:30)
[2016-12-09] MEDS: Venlafaxine EXT RELEASE CAP* 75 MG PO SCH (08:45)
[2016-12-09] MEDS: QUEtiapine TAB* 100 MG PO SCH ×2 (08:45→21:12)
[2016-12-09] MEDS: Vitamin THERAPEUTIC TAB PO SCH (08:45)
[2016-12-09] MEDS: Docusate CAP* 100 MG PO SCH ×2 (08:45→21:01)
[2016-12-09] MEDS: Acetaminophen TAB* 325 MG PO PRN (08:47)
--- NOTE | 2016-12-09 11:27 | PN ---
MHU: Group Therapy Note - Service Type Service Type: [id number] Group Psychotherapy - Cognitive Behavioral Group Therapy ( CBT):Patient was attentive and participatory in CBT programming this morning, and remained in good behavioral control. Patient expressed positive insights regarding relevant treatment interventions and goals.
--- NOTE | 2016-12-09 11:54 | PN ---
Subjective - Subjective Service Type: [id number] Hosp care 15 min low complexity Subjective: Amelia reports no progress, with ongoing sadness. Still is not sure if she is having hallucinations or not. Feels "lost." She is open to ideas of ECT or state hospitalization, recognizing an ongoing need for something, and that she's not responding quickly to unit structure. Objective - Appearance Appearance: Well Developed/Nourished Dysmorphic Features: Yes Hygiene: Normal Grooming: Well Kept - Behavior Psychomotor Activities: Abnormal-Decreased - Attitude and Relatedness Attitude and Relatedness: Needy Eye Contact: Good - Speech Quality: Unpressured Latencies: Long Quantity: Appropriate - Mood Patient's Decription of Mood: "Sad" - Affect Observed Affect: Non-labile Affect Consistent with: Dysphoria - Thought Process Patient's Thought Process: Impoverished - blocked Thought Content: Yes Passive Wish, No Suicidal Planning, No Homicidal Ideation, No Paranoid Ideation - Sensorium Experiencing Hallucinations: No, Sensorium is Clear - Level of Consciousness Level of Consciousness: Alert - Impulse Control Impulse Control: Intact - Insight and Judgement Insight and Judgement: Poor Assessment - Assessment Merits Inpatient Hospitalization: For Immediate Safety, To Initiate Treatment, For Ongoing Evaluation, For Discharge Planning, Pending Safe DC Plan Inpatient DSM-IV Dx: 1. Schizophrenia, chronic paranoid type. 2. Depressive disorder, not otherwise specified. Clinical Impression: 56-year-old female with chronic psychotic disorder and chronic mood condition and mental disability. She has a history of parasuicidal behavior and self- injury along with a family history of suicide in 2 remote relatives. She generally has had poor result with medication and has had some apparent treatment resistant symptoms. She has had difficulties over the last year with ongoing impairment; and is dealing with her mother passing away recently. Concern centered on her depression, psychotic functioning, and psychosis-driven behavior (entered a neighbor's home at night because "a spirit" was directing her to through hallucinations; along with suicidal ideation and report of recent suicidal gesturing with putting something around her neck. Stable here behaviorally. Continues symptomatic and impaired, off her apparent better baseline. She has appeared safe on checks, but revealed superficial wounds to her wrist inflicted last week. Symptoms continue, with emotional pain, depressed mood, morbid ruminations, and ongoing suicidal thoughts. Amelia has described low psychological barriers to suicide. Psychosis appears less overt now, but her thinking has blocked (disordered) - this is getting milder. Medication management continues the outpatient medication regimen of Wellbutrin 150 mg p.o. q.a.m., Colace 100 mg b.i.d., Levothyroxine 100 mcg daily, Quetiapine 200 mg q.a.m. and 800 mg q. bedtime, and Venlafaxine XR 150 mg per day. Plan - Plan Treatment Plan: Name: AMELIA CASTRO Birthdate: 1960 [id number] Continued Medication Management: Continue Outpt Medication Medications: Current Medications Acetaminophen (Tylenol Tab*) 650 mg PO Q4H PRN PRN Reason: for pain; or Temp >101 F Last Admin: 12/09/16 08:47 Dose: 325 mg Al Hydrox/Mg Hydrox/Simethicone (Maalox Plus*) 30 ml PO Q4H PRN PRN Reason: INDIGESTION Docusate Sodium (Colace Cap*) 100 mg PO BID [facility] Last Admin: 12/09/16 08:45 Dose: 100 mg Levothyroxine Sodium (Synthroid Tab*) 100 mcg PO DAILY@0600 [facility] Last Admin: 12/09/16 06:30 Dose: 100 mcg Lorazepam (Ativan Tab(*)) 0.5 mg PO BID PRN PRN Reason: ANXIETY Last Admin: 12/04/16 08:37 Dose: 0.5 mg Multivitamins (Theragran Tab*) 1 tab PO DAILY [facility] Last Admin: 12/09/16 08:45 Dose: 1 tab Nicotine (Nicotine Inhaler*) 10 mg INH Q2H PRN PRN Reason: CRAVING Psyllium Hydrophilic Mucilloid (Metamucil Martin*) 1 pkt PO 1400 [facility] Last Admin: 12/08/16 14:06 Dose: 1 pkt Quetiapine Fumarate (Seroquel Tab*) 600 mg PO BEDTIME [facility] Last Admin: 12/08/16 21:50 Dose: 600 mg Quetiapine Fumarate (Seroquel Tab*) 200 mg PO BEDTIME [facility] Last Admin: 12/08/16 22:02 Dose: Not Given Quetiapine Fumarate (Seroquel Tab*) 200 mg PO QAM [facility] Last Admin: 12/09/16 08:45 Dose: 200 mg Venlafaxine HCl (Effexor Xr Cap*) 150 mg PO DAILY [facility] Last Admin: 12/09/16 08:45 Dose: 150 mg - Discharge Plan Discharge Plan: Consider Longer Term Tx
[2016-12-09] MEDS: Psyllium PAK PO SCH (14:30)
[2016-12-09] MEDS: QUEtiapine TAB* 300 MG PO SCH (21:01)
[2016-12-10] MEDS: Levothyroxine TAB* 100 MCG TAB PO SCH (07:24)
[2016-12-10] MEDS: Vitamin THERAPEUTIC TAB PO SCH (09:04)
[2016-12-10] MEDS: Docusate CAP* 100 MG PO SCH ×2 (09:04→21:55)
[2016-12-10] MEDS: QUEtiapine TAB* 100 MG PO SCH ×2 (09:04→22:00)
[2016-12-10] MEDS: Venlafaxine EXT RELEASE CAP* 75 MG PO SCH (09:04)
[2016-12-10] MEDS: LORazepam TAB(*) 0.5 MG PO PRN (09:09)
--- NOTE | 2016-12-10 11:47 | PN ---
MHU: Group Therapy Note - Service Type Service Type: [id number] Group Psychotherapy - Cognitive Behavioral Group Therapy ( CBT):Patient was attentive and participatory in CBT programming this morning, and remained in good behavioral control. Patient expressed positive insights regarding relevant treatment interventions and goals.
[2016-12-10] MEDS: Psyllium PAK PO SCH (13:01)
[2016-12-10] MEDS: QUEtiapine TAB* 300 MG PO SCH (21:55)
[2016-12-11] MEDS: Levothyroxine TAB* 100 MCG TAB PO SCH (05:50)
[2016-12-11] MEDS: Docusate CAP* 100 MG PO SCH ×2 (09:02→22:00)
[2016-12-11] MEDS: Venlafaxine EXT RELEASE CAP* 75 MG PO SCH (09:03)
[2016-12-11] MEDS: Vitamin THERAPEUTIC TAB PO SCH (09:03)
[2016-12-11] MEDS: QUEtiapine TAB* 100 MG PO SCH ×3 (09:03→22:02)
--- NOTE | 2016-12-11 11:33 | PN ---
MHU: Group Therapy Note - Service Type Service Type: [id number] Group Psychotherapy - Cognitive Behavioral Group Therapy ( CBT):Patient was attentive and participatory in CBT programming this morning, and remained in good behavioral control. Patient expressed positive insights regarding relevant treatment interventions and goals.
[2016-12-11] MEDS: Psyllium PAK PO SCH (14:36)
--- NOTE | 2016-12-11 15:20 | PN ---
Subjective - Subjective Service Type: 08294 Hosp care 15 min low complexity Subjective: Amelia continues to state that she would kill herself with a leap or an OD if she were to go home today. She says she feels safe here. She does not want to receive ECT, as she had memory loss of good times outside the time frame of treatemnt during her last ECT course she says. She would prefer [facility] over [facility]. She requests comfort room privileges to be able to meditate. Objective - Appearance Appearance: Healthy Appearing Dysmorphic Features: No Hygiene: Normal Grooming: Well Kept - Behavior Psychomotor Activities: Normal Exhibits Abnormal Movement: No - Attitude and Relatedness Attitude and Relatedness: Cooperative Eye Contact: Good - Speech Quality: Unpressured Latencies: Normal Quantity: Appropriate - Mood Patient's Decription of Mood: "Sad" - Affect Observed Affect: Depressed Affect Consistent with: Dysphoria - Thought Process Patient's Thought Process: Coherent, Goal Directed Thought Content: Yes Passive Wish, Yes Suicidal Planning - but CFS here, No Homicidal Ideation, No Paranoid Ideation - Sensorium Experiencing Hallucinations: No, Sensorium is Clear Type of Hallucinations: Visual: No, Auditory: No, Command: No - Level of Consciousness Level of Consciousness: Alert Orientation: Yes Intact, Yes Orientated to Time, Yes Orientated to Place, Yes Orientated to Person - Impulse Control Impulse Control: Tenuous - Insight and Judgement Insight and Judgement: Poor - Group Participation Particating in Group Activities: Yes - Medication Management Medication Management Adherence: Yes Assessment - Assessment Merits Inpatient Hospitalization: For Immediate Safety, For Stabilization, For Discharge Planning, Pending Safe DC Plan Inpatient DSM-IV Dx: 1. Schizophrenia, chronic paranoid type. 2. Depressive disorder, not otherwise specified. Clinical Impression: Amelia Castro is a 56-year-old woman with chronic psychotic and mood disorder and mental disability. She has been admitted due to safety concerns raised by suicidal thoughts with plan to jump from a parking garage. She has a history of parasuicidal behavior. She has had poor response to medications with treatment resistant symptoms. Her mother recently , likely a [place] stressor in current decompensation. Today she reports continued anticipation of attempting suicide if she were to leave, and continued low mood and psychotic symptoms. She requires continued hospitalization for safety, further assessment, and treatment. 12.04.16 Amelia reports continued sadness over mother's with ongoing SI, but somewhat improved mood. Urinary retention improved, little improvement re constipation, also c/o R shoulder pain. 12.11.16, in coverage for Dr Gipson until 12.13.16: Amelia continues to anticipate SI with plan to jump from a high place or overdose on medications and alcohol were she to go home. She is concerned about her Tevin being unable to visit her if she goes to the [facility]. She does not want ECT. She reports that Tevin has told her that when she goes to the [facility], she usually gets better quickly. She has no physical complaints. Plan - Plan Treatment Plan: Name: AMELIA CASTRO Birthdate: 1960 [id number] Continue current meds. Monitor MS and safety. Plan toward transfer to the [facility] or perhaps ECT if she agrees ultimately. Change to q30 obs with comfort room privileges. Medications: Current Medications Acetaminophen (Tylenol Tab*) 650 mg PO Q4H PRN PRN Reason: for pain; or Temp >101 F Last Admin: 12/09/16 08:47 Dose: 325 mg Al Hydrox/Mg Hydrox/Simethicone (Maalox Plus*) 30 ml PO Q4H PRN PRN Reason: INDIGESTION Docusate Sodium (Colace Cap*) 100 mg PO BID [facility] Last Admin: 12/11/16 09:02 Dose: 100 mg Levothyroxine Sodium (Synthroid Tab*) 100 mcg PO DAILY@0600 [facility] Last Admin: 12/11/16 05:50 Dose: 100 mcg Lorazepam (Ativan Tab(*)) 0.5 mg PO BID PRN PRN Reason: ANXIETY Last Admin: 12/10/16 09:09 Dose: 0.5 mg Multivitamins (Theragran Tab*) 1 tab PO DAILY [facility] Last Admin: 12/11/16 09:03 Dose: 1 tab Nicotine (Nicotine Inhaler*) 10 mg INH Q2H PRN PRN Reason: CRAVING Psyllium Hydrophilic Mucilloid (Metamucil Martin*) 1 pkt PO 1400 [facility] Last Admin: 12/11/16 14:36 Dose: 1 pkt Quetiapine Fumarate (Seroquel Tab*) 600 mg PO BEDTIME [facility] Last Admin: 12/10/16 21:55 Dose: 600 mg Quetiapine Fumarate (Seroquel Tab*) 200 mg PO BEDTIME [facility] Last Admin: 12/10/16 22:00 Dose: Not Given Quetiapine Fumarate (Seroquel Tab*) 200 mg PO QAM [facility] Last Admin: 12/11/16 09:03 Dose: 200 mg Venlafaxine HCl (Effexor Xr Cap*) 150 mg PO DAILY [facility] Last Admin: 12/11/16 09:03 Dose: 150 mg - Discharge Plan Discharge Plan: Consider Longer Term Tx
[2016-12-11] MEDS: QUEtiapine TAB* 300 MG PO SCH (22:00)
[2016-12-12] MEDS: Levothyroxine TAB* 100 MCG TAB PO SCH (06:07)
[2016-12-12] MEDS: Vitamin THERAPEUTIC TAB PO SCH (08:45)
[2016-12-12] MEDS: Venlafaxine EXT RELEASE CAP* 75 MG PO SCH (08:46)
[2016-12-12] MEDS: Docusate CAP* 100 MG PO SCH ×2 (08:46→22:04)
[2016-12-12] MEDS: QUEtiapine TAB* 100 MG PO SCH ×2 (08:46→22:04)
[2016-12-12] MEDS: Psyllium PAK PO SCH (13:53)
[2016-12-12] MEDS: QUEtiapine TAB* 300 MG PO SCH (22:04)
[2016-12-13] MEDS: Levothyroxine TAB* 100 MCG TAB PO SCH (05:57)
[2016-12-13] MEDS: Vitamin THERAPEUTIC TAB PO SCH (09:07)
[2016-12-13] MEDS: Docusate CAP* 100 MG PO SCH ×2 (09:07→20:43)
[2016-12-13] MEDS: Venlafaxine EXT RELEASE CAP* 75 MG PO SCH (09:07)
[2016-12-13] MEDS: QUEtiapine TAB* 100 MG PO SCH ×2 (09:09→20:43)
[2016-12-13] MEDS: Acetaminophen TAB* 325 MG PO PRN (09:10)
[2016-12-13] MEDS: Psyllium PAK PO SCH (13:37)
--- NOTE | 2016-12-13 14:12 | PN ---
Subjective - Subjective Service Type: 02776 Hosp care 15 min low complexity Subjective: Amelia likes the idea of going to the [facility]. She notes feeling better when "In the moment" but as soon as she starts to step back and evaluate her situation things look dismal. Objective - Appearance Appearance: Healthy Appearing Hygiene: Normal Grooming: Well Kept - Behavior Psychomotor Activities: Normal - Attitude and Relatedness Attitude and Relatedness: Needy Eye Contact: Good - Speech Quality: Unpressured Latencies: Long Quantity: Appropriate - Mood Patient's Decription of Mood: "Sad" - Affect Observed Affect: Constricted Affect Consistent with: Dysphoria - Thought Process Patient's Thought Process: Coherent Thought Content: No Passive Wish, No Suicidal Planning, No Homicidal Ideation, No Paranoid Ideation - Sensorium Experiencing Hallucinations: No, Sensorium is Clear - Level of Consciousness Level of Consciousness: Alert - Impulse Control Impulse Control: Intact - Insight and Judgement Insight and Judgement: Fair Assessment - Assessment Merits Inpatient Hospitalization: To Initiate Treatment, For Ongoing Evaluation , Consolidate Improvements, For Discharge Planning, Pending Safe DC Plan Inpatient DSM-IV Dx: 1. Schizophrenia, chronic paranoid type. 2. Depressive disorder, not otherwise specified. Clinical Impression: 56-year-old female with chronic psychotic disorder and chronic mood condition and mental disability. She has a history of parasuicidal behavior and self- injury along with a family history of suicide in 2 remote relatives. She generally has had poor result with medication and has had some apparent treatment resistant symptoms. She has had difficulties over the last year with ongoing impairment; and is dealing with her mother passing away recently. Concern centered on her depression, psychotic functioning, and psychosis-driven behavior (entered a neighbor's home at night because "a spirit" was directing her to through hallucinations; along with suicidal ideation and report of recent suicidal gesturing with putting something around her neck. Stable here behaviorally. Continues symptomatic and impaired, off her apparent better baseline. She has appeared safe on checks, but revealed superficial wounds to her wrist inflicted last week. Symptoms continue, but relatively milder. She has ongoing emotional pain, depressed mood, morbid ruminations, and suicidal thoughts. Amelia has described low psychological barriers to suicide. Psychosis appears less overt now, her thinking has been blocked (disordered) - this is milder. Medication management continues the outpatient medication regimen of Wellbutrin 150 mg p.o. q.a.m., Colace 100 mg b.i.d., Levothyroxine 100 mcg daily, Quetiapine 200 mg q.a.m. and 800 mg q. bedtime, and Venlafaxine XR 150 mg per day. Plan - Plan Treatment Plan: Name: AMELIA CASTRO Birthdate: 1960 [id number] Continued Medication Management: Continue Outpt Medication Medications: Current Medications Acetaminophen (Tylenol Tab*) 650 mg PO Q4H PRN PRN Reason: for pain; or Temp >101 F Last Admin: 12/13/16 09:10 Dose: 650 mg Al Hydrox/Mg Hydrox/Simethicone (Maalox Plus*) 30 ml PO Q4H PRN PRN Reason: INDIGESTION Docusate Sodium (Colace Cap*) 100 mg PO BID [facility] Last Admin: 12/13/16 09:07 Dose: 100 mg Levothyroxine Sodium (Synthroid Tab*) 100 mcg PO DAILY@0600 [facility] Last Admin: 12/13/16 05:57 Dose: 100 mcg Lorazepam (Ativan Tab(*)) 0.5 mg PO BID PRN PRN Reason: ANXIETY Last Admin: 12/10/16 09:09 Dose: 0.5 mg Multivitamins (Theragran Tab*) 1 tab PO DAILY [facility] Last Admin: 12/13/16 09:07 Dose: 1 tab Nicotine (Nicotine Inhaler*) 10 mg INH Q2H PRN PRN Reason: CRAVING Psyllium Hydrophilic Mucilloid (Metamucil Martin*) 1 pkt PO 1400 [facility] Last Admin: 12/13/16 13:37 Dose: 1 pkt Quetiapine Fumarate (Seroquel Tab*) 600 mg PO BEDTIME [facility] Last Admin: 12/12/16 22:04 Dose: 600 mg Quetiapine Fumarate (Seroquel Tab*) 200 mg PO BEDTIME [facility] Last Admin: 12/12/16 22:04 Dose: Not Given Quetiapine Fumarate (Seroquel Tab*) 200 mg PO QAM [facility] Last Admin: 12/13/16 09:09 Dose: 200 mg Venlafaxine HCl (Effexor Xr Cap*) 150 mg PO DAILY [facility] Last Admin: 12/13/16 09:07 Dose: 150 mg - Discharge Plan Discharge Plan: Consider Longer Term Tx
[2016-12-13] MEDS: QUEtiapine TAB* 300 MG PO SCH (20:43)
[2016-12-14] MEDS: Levothyroxine TAB* 100 MCG TAB PO SCH (06:06)
[2016-12-14] MEDS: Venlafaxine EXT RELEASE CAP* 75 MG PO SCH (08:42)
[2016-12-14] MEDS: Docusate CAP* 100 MG PO SCH ×2 (08:42→22:12)
[2016-12-14] MEDS: QUEtiapine TAB* 100 MG PO SCH ×2 (08:43→22:18)
[2016-12-14] MEDS: Vitamin THERAPEUTIC TAB PO SCH (08:43)
[2016-12-14] MEDS: Psyllium PAK PO SCH (13:29)
[2016-12-14] MEDS: QUEtiapine TAB* 300 MG PO SCH (22:12)
[2016-12-15] MEDS: Levothyroxine TAB* 100 MCG TAB PO SCH (06:08)
[2016-12-15] MEDS: Vitamin THERAPEUTIC TAB PO SCH (09:20)
[2016-12-15] MEDS: QUEtiapine TAB* 100 MG PO SCH ×3 (09:20→21:37)
[2016-12-15] MEDS: Docusate CAP* 100 MG PO SCH ×2 (09:20→21:34)
[2016-12-15] MEDS: Venlafaxine EXT RELEASE CAP* 75 MG PO SCH (09:20)
[2016-12-15] MEDS: Psyllium PAK PO SCH (13:46)
[2016-12-15] MEDS: QUEtiapine TAB* 300 MG PO SCH (21:34)
[2016-12-16] MEDS: Levothyroxine TAB* 100 MCG TAB PO SCH (07:31)
[2016-12-16] MEDS: QUEtiapine TAB* 100 MG PO SCH ×2 (09:07→21:44)
[2016-12-16] MEDS: Vitamin THERAPEUTIC TAB PO SCH (09:07)
[2016-12-16] MEDS: Docusate CAP* 100 MG PO SCH ×2 (09:08→21:43)
[2016-12-16] MEDS: Venlafaxine EXT RELEASE CAP* 75 MG PO SCH (09:08)
--- NOTE | 2016-12-16 10:54 | PN ---
Subjective - Subjective Service Type: 18417 Hosp care 15 min low complexity Subjective: Amelia reports making no progress. Continues to express a defeated outlook, and does not see solutions. Says she "won't refuse" ECT, but is nervous and ambivalent about it. Objective - Appearance Appearance: Well Developed/Nourished Hygiene: Normal Grooming: Fairly Well Kept - Behavior Psychomotor Activities: Abnormal-Decreased - Attitude and Relatedness Attitude and Relatedness: Needy Eye Contact: Fair - Speech Quality: Unpressured Latencies: Long Quantity: Terse - Mood Patient's Decription of Mood: "Sad" - Affect Observed Affect: Non-labile Affect Consistent with: Dysphoria - Thought Process Patient's Thought Process: Coherent, Impoverished Thought Content: Yes Passive Wish, No Suicidal Planning, No Homicidal Ideation, No Paranoid Ideation - Sensorium Experiencing Hallucinations: No, Sensorium is Clear - Level of Consciousness Level of Consciousness: Alert - Impulse Control Impulse Control: Intact - Insight and Judgement Insight and Judgement: Poor Assessment - Assessment Merits Inpatient Hospitalization: For Immediate Safety, To Initiate Treatment, For Discharge Planning Inpatient DSM-IV Dx: 1. Schizophrenia, chronic paranoid type. 2. Depressive disorder, not otherwise specified. Clinical Impression: 56-year-old female with chronic psychotic disorder and chronic mood condition and mental disability. She has a history of parasuicidal behavior and self- injury along with a family history of suicide in 2 remote relatives. She generally has had poor result with medication and has had some apparent treatment resistant symptoms. She has had difficulties over the last year with ongoing impairment; and is dealing with her mother passing away recently. Concern centered on her depression, psychotic functioning, and psychosis-driven behavior (entered a neighbor's home at night because "a spirit" was directing her to through hallucinations; along with suicidal ideation and report of recent suicidal gesturing with putting something around her neck. Stable here behaviorally. Continues symptomatic and impaired, off her apparent better baseline. She has appeared safe on checks, but revealed superficial wounds to her wrist inflicted the week before last. Symptoms continue, relatively milder. She has ongoing emotional pain, depressed mood, morbid ruminations, and suicidal thoughts. Amelia has described low psychological barriers to suicide. Psychosis appears less overt now, her thinking has been blocked (disordered) - this is milder. Medication management continues the outpatient medication regimen of Wellbutrin 150 mg p.o. q.a.m., Colace 100 mg b.i.d., Levothyroxine 100 mcg daily, Quetiapine 200 mg q.a.m. and 800 mg q. bedtime, and Venlafaxine XR 150 mg per day. Given her risk profile and persistence of symptoms, ECT is appropriate. Expect transfer to [facility] in coming days. Plan - Plan Treatment Plan: Name: AMELIA CASTRO Birthdate: 1960 [id number] Continued Medication Management: Continue Outpt Medication Medications: Current Medications Acetaminophen (Tylenol Tab*) 650 mg PO Q4H PRN PRN Reason: for pain; or Temp >101 F Last Admin: 12/13/16 09:10 Dose: 650 mg Al Hydrox/Mg Hydrox/Simethicone (Maalox Plus*) 30 ml PO Q4H PRN PRN Reason: INDIGESTION Docusate Sodium (Colace Cap*) 100 mg PO BID [facility] Last Admin: 12/16/16 09:08 Dose: 100 mg Levothyroxine Sodium (Synthroid Tab*) 100 mcg PO DAILY@0600 [facility] Last Admin: 12/16/16 07:31 Dose: 100 mcg Lorazepam (Ativan Tab(*)) 0.5 mg PO BID PRN PRN Reason: ANXIETY Last Admin: 12/10/16 09:09 Dose: 0.5 mg Multivitamins (Theragran Tab*) 1 tab PO DAILY [facility] Last Admin: 12/16/16 09:07 Dose: 1 tab Nicotine (Nicotine Inhaler*) 10 mg INH Q2H PRN PRN Reason: CRAVING Psyllium Hydrophilic Mucilloid (Metamucil Martin*) 1 pkt PO 1400 [facility] Last Admin: 12/15/16 13:46 Dose: 1 pkt Quetiapine Fumarate (Seroquel Tab*) 600 mg PO BEDTIME [facility] Last Admin: 12/15/16 21:34 Dose: 600 mg Quetiapine Fumarate (Seroquel Tab*) 200 mg PO BEDTIME [facility] Last Admin: 12/15/16 21:37 Dose: Not Given Quetiapine Fumarate (Seroquel Tab*) 200 mg PO QAM [facility] Last Admin: 12/16/16 09:07 Dose: 200 mg Venlafaxine HCl (Effexor Xr Cap*) 150 mg PO DAILY [facility] Last Admin: 12/16/16 09:08 Dose: 150 mg - Discharge Plan Discharge Plan: Inpatient Hospitalization - For ECT
--- NOTE | 2016-12-16 13:06 | PN ---
MHU: Group Therapy Note - Service Type Service Type: [id number] Group Psychotherapy - Cognitive Behavioral Group Therapy ( CBT):Patient was attentive and participatory in CBT programming this morning, and remained in good behavioral control. Patient expressed positive insights regarding relevant treatment interventions and goals.
[2016-12-16] MEDS: Psyllium PAK PO SCH (14:03)
[2016-12-16] MEDS: QUEtiapine TAB* 300 MG PO SCH (21:43)
[2016-12-17] MEDS: Levothyroxine TAB* 100 MCG TAB PO SCH (06:00)
[2016-12-17 07:45] VITALS: BP 121/68
[2016-12-17] MEDS: Docusate CAP* 100 MG PO SCH (08:36)
[2016-12-17] MEDS: Vitamin THERAPEUTIC TAB PO SCH (08:37)
[2016-12-17] MEDS: QUEtiapine TAB* 100 MG PO SCH (08:37)
[2016-12-17] MEDS: Venlafaxine EXT RELEASE CAP* 75 MG PO SCH (08:37)
--- NOTE | 2016-12-17 11:31 | PN ---
MHU: Group Therapy Note - Service Type Service Type: [id number] Group Psychotherapy - Cognitive Behavioral Group Therapy ( CBT):Patient was attentive and participatory in CBT programming this morning, and remained in good behavioral control. Patient expressed positive insights regarding relevant treatment interventions and goals.
[2016-12-17] MEDS: Psyllium PAK PO SCH (13:55)
--- NOTE | 2016-12-17 13:55 | DS ---
Subjective - Subjective Service Types: [id number] Hosp [place] Day Mgmt simple under 30 min Discharge Date: 12/17/16 Subjective: Nadege agreed with plan for transfer today to [facility], with plan for ECT treatment. She affirmed she is safe for the tranport. She expressed appreciation for care. Objective - Appearance Appearance: Well Developed/Nourished Hygiene: Normal Grooming: Well Kept - Behavior Psychomotor Activities: Normal - Attitude and Relatedness Attitude and Relatedness: Cooperative Eye Contact: Good - Speech Quality: Unpressured Latencies: Normal Quantity: Terse - Mood Patient's Decription of Mood: "Anxious" - Affect Observed Affect: Non-labile Affect Consistent with: Dysphoria - Thought Process Patient's Thought Process: Coherent, Impoverished Thought Content: No Passive Wish, No Suicidal Planning, No Homicidal Ideation, No Paranoid Ideation - Sensorium Experiencing Hallucinations: No, Sensorium is Clear - Level of Consciousness Level of Consciousness: Alert - Impulse Control Impulse Control: Intact - Insight and Judgement Insight and Judgement: Fair Treatment Course & Assessment Clinical Course & Impression: 56-year-old female with chronic psychotic disorder and chronic mood condition and mental disability. She has a history of parasuicidal behavior and self- injury along with a family history of suicide in 2 remote relatives. She generally has had poor result with medication and has had some apparent treatment resistant symptoms. She has had difficulties over the last year with ongoing impairment; and is dealing with her mother passing away recently. Concern centered on her depression, psychotic functioning, and psychosis-driven behavior (entered a neighbor's home at night because "a spirit" was directing her to through hallucinations; along with suicidal ideation and report of recent suicidal gesturing with putting something around her neck. 12/17/16 Clear for transfer to [facility]. Nadege was generally stable here behaviorally. She continues symptomatic and impaired, off her apparent better baseline. She has appeared safe on checks, but revealed superficial wounds to her wrist inflicted the week before last. Symptoms continue, relatively milder compared to her initial presentation. She has ongoing emotional pain, depressed mood, morbid ruminations, and suicidal thoughts. Nadege has described low psychological barriers to suicide. Psychosis appears less overt now, her thinking has been blocked (disordered) - this is milder. Medication management continues the outpatient medication regimen of Wellbutrin 150 mg p.o. q.a.m., Colace 100 mg b.i.d., Levothyroxine 100 mcg daily, Quetiapine 200 mg q.a.m. and 800 mg q. bedtime, and Venlafaxine XR 150 mg per day. Given her risk profile and persistence of symptoms, ECT is appropriate. She is accepted for transfer to [facility]. Nadege has multiple risk factors putting her at high chronic risk for suicide. Subacutely she is processing her mother's passing and is at higher risk than at her better historic baseline. She has had some therapeutic response previously with ECT and it is possible that a helpful treatment will substantially reduce the acute risk that was part of the basis for Nadege's admission. Clear for Discharge: Other - for ECT treatment Inpatient DSM-IV Dx: 1. Schizophrenia, chronic paranoid type. 2. Depressive disorder, not otherwise specified. Discharge Planning - Discharge Planning Discharge Plan: Inpatient Hospitalization Medications: Current Medications Acetaminophen (Tylenol Tab*) 650 mg PO Q4H PRN PRN Reason: for pain; or Temp >101 F Last Admin: 12/13/16 09:10 Dose: 650 mg Al Hydrox/Mg Hydrox/Simethicone (Maalox Plus*) 30 ml PO Q4H PRN PRN Reason: INDIGESTION Docusate Sodium (Colace Cap*) 100 mg PO BID [facility] Last Admin: 12/17/16 08:36 Dose: 100 mg Levothyroxine Sodium (Synthroid Tab*) 100 mcg PO DAILY@0600 [facility] Last Admin: 12/17/16 06:00 Dose: 100 mcg Lorazepam (Ativan Tab(*)) 0.5 mg PO BID PRN PRN Reason: ANXIETY Last Admin: 12/10/16 09:09 Dose: 0.5 mg Multivitamins (Theragran Tab*) 1 tab PO DAILY [facility] Last Admin: 12/17/16 08:37 Dose: 1 tab Nicotine (Nicotine Inhaler*) 10 mg INH Q2H PRN PRN Reason: CRAVING Psyllium Hydrophilic Mucilloid (Metamucil Martin*) 1 pkt PO 1400 [facility] Last Admin: 12/16/16 14:03 Dose: 1 pkt Quetiapine Fumarate (Seroquel Tab*) 600 mg PO BEDTIME [facility] Last Admin: 12/16/16 21:43 Dose: 600 mg Quetiapine Fumarate (Seroquel Tab*) 200 mg PO BEDTIME [facility] Last Admin: 12/16/16 21:44 Dose: Not Given Quetiapine Fumarate (Seroquel Tab*) 200 mg PO QAM [facility] Last Admin: 12/17/16 08:37 Dose: 200 mg Venlafaxine HCl (Effexor Xr Cap*) 150 mg PO DAILY [facility] Last Admin: 12/17/16 08:37 Dose: 150 mg Discharge Planning: Prescriptions provided for discharge [] Yes [x] No Follow up care details as per social work arrangements. Patient response to discharge plan: [] eager for discharge [x] agreeable with discharge plan [] ambivalent about discharge [] disagrees with discharge today
== END 2016-12-17 16:05 | DRG 750 ==
LOC: ED 14:08 → BSU 15:57
PROVIDERS: ADMIT Psychiatry & Neurology Psychiatry; ATTEND Psychiatry & Neurology Psychiatry
DX: F20.0 Paranoid schizophrenia (principal); R45.851 Suicidal ideations; F32.9 Major depressive disorder, single episode, unspecified; E03.9 Hypothyroidism, unspecified; Z88.6 Allergy status to analgesic agent; Z88.5 Allergy status to narcotic agent; Z88.0 Allergy status to penicillin; Z88.8 Allergy status to other drugs, medicaments and biological substances; Z81.8 Family history of other mental and behavioral disorders
CPT/HCPCS: 36415; 80053; 80061; 80307; 80320; 80329; 81003; 84443; 85025; 90853; 99222; 99231; 99232; 99238; A9270-GY; G0480

== ENCOUNTER 2017-05-01 15:39 | Inpatient (IN) | payer MEDICAID ==
[2017-05-01 16:54] LABS: Hematocrit 40 % (35-47); Mean Corpuscular HGB Conc 33 g/dl (31-36); Mean Corpuscular Hemoglobin 27 pg (27-31); Mean Corpuscular Volume 83 fL (80-97); Mean Platelet Volume 7 um3 (7.4-10.4); Red Cell Distribution Width 14 % (10.5-15); White Blood Count 5.1 10^3/ul (3.5-10.8)
[2017-05-01 17:11] LABS: ALT 14 U/L (7-52); AST 17 U/L (13-39); Albumin 4.4 g/dL (3.2-5.2); Alkaline Phosphatase 77 U/L (34-104); Anion Gap 5 mmol/L (2-11); BUN/Creatinine Ratio 9.4 (8-20); Blood Urea Nitrogen 8 mg/dL (6-24); CO2 Carbon Dioxide 28 mmol/L (22-32); Calcium 9.3 mg/dL (8.6-10.3); Chloride 95 mmol/L (101-111); EGFR African American 89.3 (>60); EGFR Non-African American 69.4 (>60); Globulin 3.1 g/dL (2-4); Glucose 95 mg/dL (70-100); Sodium 128 mmol/L (133-145); Total Protein 7.5 g/dL (6.4-8.9)
--- NOTE | 2017-05-01 17:19 | ED ---
Psychiatric Complaint - HPI Summary HPI Summary: 56F presents with feeling more sad. She states that she would be okay with didn 't wake up. She talked with her therapist today who became concerned about her safety. She would take all of her pills to overdose. She keeps repeating that wants to live for boyfriend but she is just so sad. She denies any drug or ETOH use. - History Of Current Complaint Chief Complaint: EDMentalHealth Time Seen by Provider: 05/01/17 16:23 - Allergies/Home Medications Allergies/Adverse Reactions: Allergies Allergy/AdvReac Type Severity Reaction Status Date / Time Doxycycline Allergy Rash Verified 12/01/16 11:54 Ibuprofen Allergy Facial Verified 12/01/16 11:54 Redness/Flushing Penicillins Allergy unk Verified 12/01/16 11:54 Home Medications: Home Medications LORazepam TAB(*) [Ativan 0.5 MG TAB (*)] 0.5 mg PO BEDTIME MDD 0.5 mg 05/01/17 [ History Confirmed 05/01/17] QUEtiapine TAB* [Seroquel TAB*] 200 mg PO QAM 05/01/17 [History Confirmed ] Venlafaxine ER (NF) [Effexor ER (NF)] 150 mg PO DAILY 05/01/17 [History Confirmed 05/01/17] PMH/Surg Hx/FS Hx/Imm Hx Endocrine/Hematology History: Reports: Hx Thyroid Disease - valeri disease Cardiovascular History: Denies: Hx Aneurysm, Hx Angina, Hx Angioplasty, Hx Atrial Fibrillation, Hx Auto Implanted Cardiovert Defib, Hx Cardiac Arrest, Hx Cardiomegaly, Hx Congenital Heart Disease, Hx Congestive Heart Failure, Hx Coronary Artery Disease, Hx Deep Vein Thrombosis, Hx Embolism, Hx Hypercholesterolemia, Hx Hypotension, Hx Hypertension, Hx Myocardial Infarction, Hx Pacemaker/ICD, Hx Peripheral Vascular Disease, Hx Rheumatic Fever, Hx Syncope, Hx Valvular Heart Disease, Other Cardiovascular Problems/Disorders Respiratory History: Denies: Hx Asthma, Hx Bronchopulmonary Dysplasia, Hx Chronic Bronchitis, Hx Chronic Obstructive Pulmonary Disease (COPD), Hx Cystic Fibrosis, Hx Lung Cancer , Hx Pleural Effusion, Hx Pneumonia, Hx Pulmonary Edema, Hx Pulmonary Embolism, Hx Seasonal Allergies, Hx Sleep Apnea, Other Respiratory Problems/Disorders GI History: Denies: Hx Cirrhosis, Hx Crohn's Disease, Hx Diverticulosis, Hx Gall Bladder Disease, Hx Gastroesophageal Reflux Disease, Hx Gastrointestinal Bleed, Hx Hiatal Hernia, Hx Irritable Bowel, Hx Jaundice, Hx Obstructive Bowel, Hx Ileostomy, Hx Pyloric Stenosis, Hx Ulcer, Hx Urosepsis, Other GI Disorders History: Denies: Hx Acute Renal Failure, Hx Benign Prostatic Hyperplasia, Hx Chronic Renal Failure, Hx Dialysis, Hx Kidney Infection, Hx Kidney Stones, Hx Renal Disease, Other Problems/Disorders Musculoskeletal History: Denies: Hx Arthritis, Hx Rheumatoid Arthritis, Hx Back Problems, Hx Bursitis , Hx Congenital Bone Abnormalities, Hx Fibromyalgia, Hx Gout, Hx Orthopedic Injury, Hx Osteoporosis, Hx Scoliosis, Hx Tendonitis, Other Musculoskeletal History Sensory History: Reports: Hx Contacts or Glasses - glasses for distance Denies: Hx Cataracts, Hx Hearing Aid, Hx Hearing Problem Opthamlomology History: Reports: Hx Contacts or Glasses - glasses for distance Denies: Hx Cataracts Neurological History: Denies: Hx CVA, Hx Dementia, Hx Developmental Delay, Hx Headaches, Hx Migraine, Hx Nerve Disease, Hx Peripheral Neuropathy, Hx Seizures, Hx Spinal Cord Injury, Hx Transient Ischemic Attacks (TIA), Other Neuro Impairments/ Disorders Psychiatric History: Reports: Hx Anxiety, Hx Depression, Hx Panic Disorder, Hx Community Mental Health Tx, Hx Schizophrenia Denies: Hx Attention Deficit Hyperactivity Disorder, Hx Eating Disorder, Hx Post Traumatic Stress Disorder, Hx Inpatient Treatment, Hx Bipolar Disorder, Hx Suicide Attempt, Hx of Violent Episodes Against Others, Hx Substance Abuse - Cancer History Hx Chemotherapy: No Hx Radiation Therapy: No Infectious Disease History: No Infectious Disease History: Reports: Hx Shingles Denies: Hx Hepatitis, Hx Human Immunodeficiency Virus (HIV), Hx Tuberculosis , Traveled Outside the [place] in Last 30 Days - Family History Known Family History: Positive: None, Other - schizophrenia. alcohol abuse. depression-SI - Social History Alcohol Use: None Substance Use Type: Reports: None Substance Use Comment - Amount & Last Used: 5 pills of unknown amount of seroquel Hx Tobacco Use: No Smoking Status (MU): Never Smoked Tobacco Have You Smoked in the Last Year: No Review of Systems Negative: Fever Negative: Chest Pain Negative: Shortness Of Breath Positive: Depressed All Other Systems Reviewed And Are Negative: Yes Physical Exam Triage Information Reviewed: Yes Vital Signs On Initial Exam: Initial Vitals Temp Pulse Resp BP Pulse Ox 98.7 F 84 16 115/74 98 05/01/17 15:41 05/01/17 15:41 05/01/17 15:41 05/01/17 15:41 05/01/17 15:41 Vital Signs Reviewed: Yes Appearance: Positive: Well-Appearing Skin: Positive: Warm, Dry Head/Face: Positive: Normal Head/Face Inspection Eyes: Positive: Normal, Conjunctiva Clear Respiratory/Lung Sounds: Positive: Clear to Auscultation, Breath Sounds Present Cardiovascular: Positive: Normal, RRR Abdomen Description: Positive: Nontender, Soft Bowel Sounds: Positive: Present Psychiatric: Positive: Other - flat affect - Debbie Coma Scale Coma Scale Total: 15 Diagnostics - Vital Signs Vital Signs Temp Pulse Resp BP Pulse Ox 05/01/17 15:41 98.7 F 84 16 115/74 98 - Laboratory Lab Results: Lab Results 05/01/17 05/01/17 Range/Units 16:40 16:40 WBC 5.1 (3.5-10.8) 10^3/ul RBC 4.80 (4.0-5.4) 10^6/ul Hgb 13.0 (12.0-16.0) g/dl Hct 40 (35-47) % MCV 83 (80-97) fL MCH 27 (27-31) pg MCHC 33 (31-36) g/dl RDW 14 (10.5-15) % Plt Count 318 (150-450) 10^3/ul MPV 7 L (7.4-10.4) um3 Neut % (Auto) 46.6 (38-83) % Lymph % (Auto) 44.1 (25-47) % [place] % (Auto) 8.9 (1-9) % Eos % (Auto) 0.1 (0-6) % Baso % (Auto) 0.3 (0-2) % Absolute Neuts (auto) 2.4 (1.5-7.7) 10^3/ul Absolute Lymphs (auto) 2.2 (1.0-4.8) 10^3/ul Absolute Monos (auto) 0.5 (0-0.8) 10^3/ul Absolute Eos (auto) 0 (0-0.6) 10^3/ul Absolute Basos (auto) 0 (0-0.2) 10^3/ul Absolute Nucleated RBC 0 10^3/ul Nucleated RBC % 0 Sodium 128 L (133-145) mmol/L Potassium 4.0 (3.5-5.0) mmol/L Chloride 95 L (101-111) mmol/L Carbon Dioxide 28 (22-32) mmol/L Anion Gap 5 (2-11) mmol/L BUN 8 (6-24) mg/dL Creatinine 0.85 (0.51-0.95) mg/dL Est GFR ( Amer) 89.3 (>60) Est GFR (Non-Af Amer) 69.4 (>60) BUN/Creatinine Ratio 9.4 (8-20) Glucose 95 (70-100) mg/dL Calcium 9.3 (8.6-10.3) mg/dL Total Bilirubin 0.40 (0.2-1.0) mg/dL AST 17 (13-39) U/L ALT 14 (7-52) U/L Alkaline Phosphatase 77 (34-104) U/L Total Protein 7.5 (6.4-8.9) g/dL Albumin 4.4 (3.2-5.2) g/dL Globulin 3.1 (2-4) g/dL Albumin/Globulin Ratio 1.4 (1-3) TSH Pending Beta HCG, Quant 1.59 mIU/mL Salicylates Pending Acetaminophen Pending Serum Alcohol Pending Result Diagrams: 05/01/17 16:40 05/01/17 16:40 Lab Statement: Any lab studies that have been ordered have been reviewed, and results considered in the medical decision making process. Course/Dx - Course Course Of Treatment: 56F presents with feeling more sad. She states that she would be okay with didn't wake up. She talked with her therapist today who became concerned about her safety. She would take all of her pills to overdose. She keeps repeating that wants to live for boyfriend but she is just so sad. She denies any drug or ETOH use. flat affect on exam. medically clear for [facility]. signed out to dr hutchinson pending for dispo. - Differential Dx/Clinical Impression Differential Diagnosis/HQI/PQRI: Positive: Anxiety, Depression, Suicidal Ideation Provider Diagnosis: Depression Discharge - Discharge Plan Condition: Stable Disposition: OTHER Discharge Disposition Comment: signed out to dr hutchinson
[2017-05-01 17:25] LABS: Acetaminophen < 15 mcg/mL; Alcohol < 10 mg/dL (<10); Salicylate < 2.50 mg/dL (<30)
[2017-05-01 17:44] LABS: TSH (Thyroid Stimulating Horm) 3.25 mcIU/mL (0.34-5.60)
[2017-05-01 20:46] LABS: Urine Bilirubin Negative (Negative); Urine Glucose Negative (Negative); Urine Nitrite Negative (Negative)
[2017-05-01 21:04] LABS: Benzodiazepine Urine Screen None Detected (None Detect)
[2017-05-02] MEDS: Levothyroxine TAB* 100 MCG TAB PO SCH (07:56)
[2017-05-02] MEDS ORDERED: Venlafaxine EXT RELEASE CAP* 75 MG PO SCH (09:00)
[2017-05-02] MEDS: Docusate CAP* 100 MG PO SCH ×2 (12:30→21:33)
[2017-05-02] MEDS: QUEtiapine TAB* 100 MG PO SCH (12:30)
[2017-05-02] MEDS ORDERED: Acetaminophen TAB* 325 MG PO PRN (13:26)
[2017-05-02] MEDS ORDERED: Al Hydrox/Mg Hydrox/Simet LIQ* 30 ML UDC PO PRN (13:26)
[2017-05-02] MEDS: Vitamin THERAPEUTIC TAB PO SCH (14:09)
--- NOTE | 2017-05-02 21:16 | HP ---
PSYCHIATRIC HISTORY AND PHYSICAL: DATE OF ADMISSION: 05/02/17 JUSTIFICATION FOR ADMISSION: The patient is in need of 72-hour supervision and care secondary to suicidal ideations. CHIEF COMPLAINT: "I have just been kind of overwhelmed." HISTORY OF PRESENT ILLNESS: The patient is a 56-year-old single white female with a history of chronic schizoaffective disorder depressed type, who was sent in on a 9.45 legal status from the [facility] where she had presented as extremely depressed, paranoid, threatening to overdose on medications, and stating that she wanted to fall asleep and not wake up. My understanding is that the patient had been transferred back in November of 2016 from our [facility] Unit to the psychiatric unit at [facility] where was slated to receive a course of ECT treatment. According to the patient, she received several weeks of inpatient ECT and was then discharged back to the [facility] where the plan was for her to get maintenance ECT once weekly. My understanding is that she did not adhere to this plan and has not received any further ECT since February of this year. When asked to explain the situation, she indicates that the ECT gave her very bad memory problems and she is not interested in continuing it at this time. The patient endorses multiple symptoms of mental illness including feeling sad, fearful, over-whelmed, paranoid. She endorses some delusional thoughts to the extent that her neighbors have been eavesdropping on her. She does have a past history of suicide attempt via overdose and was unwilling to contract for safety in our ED. When asked about psychosocial stressors, she indicates that her boyfriend, Tevin is significantly older than her and that his health has been poor. She also indicates that they had been planning to visit her father in [place], [place] because her father's current spouse is endorsing that her father has been drinking and has been diagnosed with cancer. In addition, her brother lives in [place] as well and he has been abusing substances and being behaviorally out of control. The patient feels extremely concerned about these issues and wishes that she could be in [place] to help them, but does not feel that she can travel with her boyfriend in his current state. She also endorses feelings of low energy, hopelessness, helplessness, worthlessness at times. She reported these symptoms to her outpatient therapist, Rosalia Kingston at [facility] and was sent promptly to the emergency room for an evaluation. PAST PSYCHIATRIC HISTORY: The patient has a chronic psychotic and affective disorder. First hospitalized in 1992. She has had about 10 to 12 total psychiatric hospitalizations, the last being at [facility] in late November of 2016, where she received ECT treatment. She does have a history of parasuicidal behaviors such as self-cutting. She has also had a history of state hospitalization most recently at [facility] in the summer of 2015. PAST MEDICAL HISTORY: Significant for hypothyroidism. CURRENT MEDICATIONS: Are as follows: 1. She is taking Colace 100 mg p.o. b.i.d. 2. Synthroid 100 mcg p.o. daily. 3. Seroquel 200 mg in the morning and 600 mg at night. 4. Venlafaxine extended release 150 mg p.o. daily. ALLERGIES: She has drug allergies to DOXYCYCLINE, IBUPROFEN, PENICILLIN, CLOZAPINE, and CODEINE. FAMILY PSYCHIATRIC HISTORY: There has been suicides in her extended family such as her maternal great grandfather and her maternal great aunt. SUBSTANCE ABUSE HISTORY: The patient denies abuse of alcohol, drugs, or tobacco. SOCIAL HISTORY: Nadege was born in [place]. Her parents when she was 4. Her mother recently . She is the third of 4 children. She had an older brother and older sister and a younger sister. She was able to graduate from high school and has worked odd jobs in the past, but she is currently unemployed on disability. She has never , has no children. For the last decade, she has dated a man named, Tevin, who is significantly older, but they do not live together. She enjoys reading as a pass time. REVIEW OF SYSTEMS: The patient denies headache or double vision. She denies sore throat, cough, chest pain, difficulty breathing. She denies abdominal pain , nausea, vomiting, diarrhea, or constipation. Denies difficulty ambulating, rashes, enlarged lymph nodes, changes in weight, or fevers. PHYSICAL EXAMINATION VITAL SIGNS: Blood pressure 127/88, heart rate is 69, respiratory rate 16, temperature 97.8 degrees Fahrenheit, oxygen saturations are 100% on room air. HEENT: Head is normocephalic, atraumatic. NECK: Supple. CHEST: Clear to auscultation bilaterally. CARDIAC EXAM: Reveals normal heart sounds. ABDOMEN: Soft and nontender. MUSCULOSKELETAL: Exam reveals no sign of edema. NEUROLOGIC: She is grossly intact. SKIN: Warm and dry. LABORATORY DATA: CBC is within normal limits as is her complete metabolic panel. Serum test is negative. TSH within normal limits at 3.25. Urinalysis is within normal limits. Urine drug screen is negative for all substances tested. MENTAL STATUS EXAM: The patient is a middle-aged white female with long dark hair. She is wearing eye glasses. She is dressed in blue patient scrubs with a somewhat slumped posture as she is sitting on the couch. She makes fair eye contact. She is calm and cooperative. Speech is somewhat slow and measured. Mood is depressed with a constricted affect. Thought process is linear with some evidence of slowed thought rate. Thought content is significant for feeling hopeless. She endorses suicidal ideations with thoughts of overdosing on medications. She denies homicidality. The patient denies auditory or visual hallucinations, but she does endorse paranoid thoughts that her neighbors are spying on her. Insight and judgment are fair given her willingness to come in on a voluntary basis. Cognitively, she is awake and alert. DIAGNOSES: Are as follows: [place] I: Schizoaffective disorder, depressed type. [place] II: Deferred. [place] III: Hypothyroidism. [place] IV: Severe primary support stressors. [place] V: At this time is 40. ASSESSMENT: The patient is a 56-year-old single white female with a history of schizoaffective disorder, depressed type, who was sent on a 9.45 legal status from the [facility] after endorsing suicidal ideations , depressed mood, and paranoid ideations towards her neighbors. I do not believe that she would be safe in a less restrictive setting at this time and I feel it is justified to admit her to the Adult Behavioral Health Unit. PLAN: The patient is admitted to the Adult Behavioral Health Unit and placed on q.15 minute checks for her own safety. We will resume medication therapies with docusate 100 mg b.i.d., lorazepam 0.5 mg p.o. q.h.s., Synthroid 100 mcg p.o. daily, quetiapine 200 mg in the morning and 600 mg in the evening and we will increase her venlafaxine XR from 150 mg daily to 225 mg daily. I will try to reach Dr. Sachi Delgado in the outpatient mental health clinic to receive further collateral information and it may be useful to reach out to her significant other for the same purpose. While she is here, she is certainly encouraged to avail herself of all milieu and group activities including psychotherapy and case management. She is likely to follow up with [facility] after discharge. The patient is not agreeable to either ECT or transfer back to [facility] at this time, so we will do our best to get her feeling better in the acute inpatient setting. She denies any thoughts of hurting herself on our unit. [id number]/[facility] #: [id number] EMELYN
[2017-05-02] MEDS: LORazepam TAB(*) 0.5 MG PO SCH ×2 (21:34→21:36)
[2017-05-02] MEDS: QUEtiapine TAB* 300 MG PO SCH (21:34)
[2017-05-03] MEDS: Levothyroxine TAB* 100 MCG TAB PO SCH (07:27)
[2017-05-03] MEDS: Vitamin THERAPEUTIC TAB PO SCH (08:35)
[2017-05-03] MEDS: QUEtiapine TAB* 100 MG PO SCH (08:35)
[2017-05-03] MEDS: Venlafaxine EXT RELEASE CAP* 75 MG PO SCH (08:35)
[2017-05-03] MEDS: Docusate CAP* 100 MG PO SCH (08:36)
--- NOTE | 2017-05-03 17:30 | PN ---
<OctavianoMaria Luz - Last Filed: 05/03/17 17:48> Subjective - Subjective Service Type: [id number] Hosp care 15 min low complexity Subjective: Amelia is cooperative on approach. She continues to endorse passive suicidal ideation, she would like to "go to sleep and never wake up". Denies SIB thoughts , reports she slept "alright" last night. Mood is depressed with constricted affect. Her latency in speech is extreme. Tolerating increased dose of Venlafaxine XR 225 mg, without c/o side effects. Objective - Appearance Appearance: Other - medium build with slumped posture Dysmorphic Features: No Hygiene: Normal Grooming: Fairly Well Kept - Behavior Psychomotor Activities: Normal Exhibits Abnormal Movement: No - Attitude and Relatedness Attitude and Relatedness: Minimally Cooperative Eye Contact: Fair - Speech Quality: Unpressured Latencies: Long Quantity: Terse - Mood Patient's Decription of Mood: "up and down" - Affect Observed Affect: Constricted Affect Consistent with: Dysphoria - Thought Process Patient's Thought Process: Impoverished Thought Content: Yes Passive Wish, No Suicidal Planning, No Homicidal Ideation, No Paranoid Ideation - Sensorium Experiencing Hallucinations: No, Sensorium is Clear Type of Hallucinations: Visual: No, Auditory: No, Command: No - Level of Consciousness Level of Consciousness: Alert Orientation: Yes Intact, Yes Orientated to Time, Yes Orientated to Place, Yes Orientated to Person - Impulse Control Impulse Control: Intact - Insight and Judgement Insight and Judgement: Poor - Group Participation Particating in Group Activities: Yes - Medication Management Medication Management Adherence: Yes Assessment - Assessment Merits Inpatient Hospitalization: For Stabilization, For Ongoing Evaluation Clinical Impression: This 56 yr.old female with history of chronic schizoaffective d/o, depressed type was brought in from [facility] clinic with extreme depression, paranoia and threats to OD on her medications. Past hx of suicide attempt with OD of pills. Her first inpatient psychiatric admission was in 1992. Has had 10-12 subsequent psychiatric inpatient hospitalizations. This November 2016, was inpatient first at this hospital, then to [facility] for several weeks for ECT. Last ECT in February, was to have weekly ECT for maintenance and patient did not f/u on this recommendation. She reports being distressed over the health of her boyfriend as well as her father who lives in [place]. Continued outpatient medications: docusate 100mg po bid; Lorazepam 0.5 mg po qhs ; Synthyroid 1000 mcg po qd; quetiapine 200mg in morning and 600 mg in evening; and her venlafaxine XR was increased to 225 mg po this morning. Plan - Plan Treatment Plan: Name: AMELIA CASTRO Birthdate: 1960 [id number] Medications: Current Medications Acetaminophen (Tylenol Tab*) 650 mg PO Q4H PRN PRN Reason: PAIN or TEMP > 101 F Al Hydrox/Mg Hydrox/Simethicone (Maalox Plus*) 30 ml PO Q4H PRN PRN Reason: INDIGESTION Docusate Sodium (Colace Cap*) 100 mg PO BID [facility] Last Admin: 05/03/17 08:36 Dose: 100 mg Levothyroxine Sodium (Synthroid Tab*) 100 mcg PO DAILY@0600 [facility] Last Admin: 05/03/17 07:27 Dose: 100 mcg Lorazepam (Ativan Tab(*)) 0.5 mg PO BEDTIME [facility] Last Admin: 05/02/17 21:36 Dose: Not Given Multivitamins (Theragran Tab*) 1 tab PO DAILY [facility] Last Admin: 05/03/17 08:35 Dose: 1 tab Quetiapine Fumarate (Seroquel Tab*) 200 mg PO QAM [facility] Last Admin: 05/03/17 08:35 Dose: 200 mg Quetiapine Fumarate (Seroquel Tab*) 600 mg PO BEDTIME [facility] Last Admin: 05/02/17 21:34 Dose: 600 mg Venlafaxine HCl (Effexor Xr Cap*) 225 mg PO DAILY [facility] Last Admin: 05/03/17 08:35 Dose: 225 mg <Kareem Pedraza - Last Filed: 05/04/17 18:29> Subjective - Subjective Subjective: Reviewed this note written by student psychiatric nurse practitioner, Maria Luz Brumfield, and approved it after discussion with her. Plan - Plan Treatment Plan: Name: AMELIA CASTRO Birthdate: 1960 [id number] Medications: Current Medications Acetaminophen (Tylenol Tab*) 650 mg PO Q4H PRN PRN Reason: PAIN or TEMP > 101 F Al Hydrox/Mg Hydrox/Simethicone (Maalox Plus*) 30 ml PO Q4H PRN PRN Reason: INDIGESTION Docusate Sodium (Colace Cap*) 100 mg PO BID [facility] Last Admin: 05/04/17 18:01 Dose: Not Given Levothyroxine Sodium (Synthroid Tab*) 100 mcg PO DAILY@0600 [facility] Last Admin: 05/04/17 07:06 Dose: 100 mcg Lorazepam (Ativan Tab(*)) 0.5 mg PO BEDTIME [facility] Last Admin: 05/04/17 18:01 Dose: Not Given Multivitamins (Theragran Tab*) 1 tab PO DAILY [facility] Last Admin: 05/04/17 08:41 Dose: 1 tab Quetiapine Fumarate (Seroquel Tab*) 200 mg PO QAM [facility] Last Admin: 05/04/17 08:42 Dose: 200 mg Quetiapine Fumarate (Seroquel Tab*) 600 mg PO BEDTIME [facility] Last Admin: 05/04/17 18:01 Dose: Not Given Venlafaxine HCl (Effexor Xr Cap*) 225 mg PO DAILY [facility] Last Admin: 05/04/17 08:41 Dose: 225 mg
[2017-05-04] MEDS: Levothyroxine TAB* 100 MCG TAB PO SCH (07:06)
[2017-05-04] MEDS: Docusate CAP* 100 MG PO SCH ×3 (08:41→20:21)
[2017-05-04] MEDS: Venlafaxine EXT RELEASE CAP* 75 MG PO SCH (08:41)
[2017-05-04] MEDS: Vitamin THERAPEUTIC TAB PO SCH (08:41)
[2017-05-04] MEDS: QUEtiapine TAB* 100 MG PO SCH (08:42)
[2017-05-04] MEDS: LORazepam TAB(*) 0.5 MG PO SCH ×2 (18:01→20:20)
[2017-05-04] MEDS: QUEtiapine TAB* 300 MG PO SCH ×2 (18:01→20:21)
[2017-05-05] MEDS: QUEtiapine TAB* 100 MG PO SCH (08:46)
[2017-05-05] MEDS: Vitamin THERAPEUTIC TAB PO SCH (08:46)
[2017-05-05] MEDS: Levothyroxine TAB* 100 MCG TAB PO SCH (08:46)
[2017-05-05] MEDS: Docusate CAP* 100 MG PO SCH ×2 (08:46→20:26)
[2017-05-05] MEDS: Venlafaxine EXT RELEASE CAP* 75 MG PO SCH (08:46)
--- NOTE | 2017-05-05 15:15 | PN ---
Subjective - Subjective Subjective: Amelia c/o poor sleep, continued sad mood, suicidal ideation but no intent or plan and she contracts for safety. Tolerating increased dose of Venlafaxine XR 225 mg, without c/o side effects but she is unsure if it helps. Objective - Appearance Appearance: Healthy Appearing Hygiene: Normal Grooming: Well Kept - Behavior Psychomotor Activities: Abnormal-Decreased - Attitude and Relatedness Attitude and Relatedness: Needy Eye Contact: Fair - Speech Quality: Unpressured Latencies: Long Quantity: Appropriate - Affect Observed Affect: Depressed Affect Consistent with: Dysphoria - Thought Process Patient's Thought Process: Impoverished Thought Content: Yes Passive Wish, Yes Paranoid Ideation, No Suicidal Planning, No Homicidal Ideation - Sensorium Experiencing Hallucinations: No, Sensorium is Clear - Level of Consciousness Level of Consciousness: Alert Orientation: Yes Intact - Impulse Control Impulse Control: Intact - Insight and Judgement Insight and Judgement: Impaired - Group Participation Particating in Group Activities: No - Medication Management Medication Management Adherence: Yes Assessment - Assessment Merits Inpatient Hospitalization: For Ongoing Evaluation, Consolidate Improvements, For Discharge Planning Inpatient DSM-IV Dx: Schizoaffective disorder. depressed type; Clinical Impression: Ongoing impairing psychotic and depressive symptoms, tolerating trials of Quetiapine and Venlafaxine ER with no adverse effects. She needs continued admission for stabilization. Plan - Plan Treatment Plan: Name: AMELIA CASTRO Birthdate: 1960 [id number] Continued Medication Management: Continue Outpt Medication Medications: Current Medications Acetaminophen (Tylenol Tab*) 650 mg PO Q4H PRN PRN Reason: PAIN or TEMP > 101 F Al Hydrox/Mg Hydrox/Simethicone (Maalox Plus*) 30 ml PO Q4H PRN PRN Reason: INDIGESTION Docusate Sodium (Colace Cap*) 100 mg PO BID [facility] Last Admin: 05/05/17 08:46 Dose: 100 mg Levothyroxine Sodium (Synthroid Tab*) 100 mcg PO DAILY@0600 [facility] Last Admin: 05/05/17 08:46 Dose: 100 mcg Lorazepam (Ativan Tab(*)) 0.5 mg PO BEDTIME [facility] Last Admin: 05/04/17 20:20 Dose: Not Given Multivitamins (Theragran Tab*) 1 tab PO DAILY [facility] Last Admin: 05/05/17 08:46 Dose: 1 tab Quetiapine Fumarate (Seroquel Tab*) 200 mg PO QAM [facility] Last Admin: 05/05/17 08:46 Dose: 200 mg Quetiapine Fumarate (Seroquel Tab*) 600 mg PO BEDTIME [facility] Last Admin: 05/04/17 20:21 Dose: 600 mg Venlafaxine HCl (Effexor Xr Cap*) 225 mg PO DAILY [facility] Last Admin: 05/05/17 08:46 Dose: 225 mg - Discharge Plan Discharge Plan: Outpatient Follow Up Outpatient Program: [facility]
[2017-05-05] MEDS: QUEtiapine TAB* 300 MG PO SCH (20:25)
[2017-05-05] MEDS: LORazepam TAB(*) 0.5 MG PO SCH (20:26)
[2017-05-06] MEDS: Levothyroxine TAB* 100 MCG TAB PO SCH (08:03)
[2017-05-06] MEDS: QUEtiapine TAB* 100 MG PO SCH (08:03)
[2017-05-06] MEDS: Docusate CAP* 100 MG PO SCH ×2 (08:04→20:50)
[2017-05-06] MEDS: Venlafaxine EXT RELEASE CAP* 75 MG PO SCH (08:04)
[2017-05-06] MEDS: Vitamin THERAPEUTIC TAB PO SCH (08:04)
--- NOTE | 2017-05-06 17:08 | PN ---
Subjective - Subjective Service Type: 91384 Hosp care 15 min low complexity Subjective: Patient remains depressed with psychomotor retardation, speech latency, decreased thought rate and difficulty communicating her needs. She is tolerating the increase in venlafaxine XR from 150 to 225mg well but hasn't noticed improvement in her condition. She indicates that her boyfriend, Tevin , is encouraging her to consider resumption of ECT, however, she doesn't feel that this has been particularly helpful. She says she would like to go visit her family in [place]. Patient having vague, passive SI without plan. Participating adequately in groups per staff. Objective - Appearance Appearance: Well Developed/Nourished Dysmorphic Features: Yes Grooming: Fairly Well Kept - Behavior Psychomotor Activities: Abnormal-Decreased Exhibits Abnormal Movement: No - Attitude and Relatedness Attitude and Relatedness: Withdrawn Eye Contact: Fair - Speech Quality: Unpressured Latencies: Long Quantity: Terse - Mood Patient's Decription of Mood: "Sad" - Affect Observed Affect: Constricted Affect Consistent with: Dysphoria - Thought Process Patient's Thought Process: Impoverished Thought Content: Yes Passive Wish, Yes Paranoid Ideation, No Suicidal Planning, No Homicidal Ideation - Sensorium Experiencing Hallucinations: No, Sensorium is Clear Type of Hallucinations: Visual: No, Auditory: No, Command: No - Level of Consciousness Level of Consciousness: Alert Orientation: Yes Intact, Yes Orientated to Time, Yes Orientated to Place, Yes Orientated to Person - Impulse Control Impulse Control: Tenuous - Insight and Judgement Insight and Judgement: Fair - Group Participation Particating in Group Activities: Yes - Medication Management Medication Management Adherence: Yes Assessment - Assessment Merits Inpatient Hospitalization: For Immediate Safety, For Stabilization Inpatient DSM-IV Dx: Schizoaffective disorder. depressed type; Clinical Impression: 56 y.o. single, white female with a history of schizoaffective DO, depressed type who arrives via 9.45 from [facility] due to depressed mood, paranoia and passive SI. Plan - Plan Treatment Plan: Name: AMELIA CASTRO Birthdate: 1960 [id number] The patient is taking venlafazine 225mg PO qam and quetiapine 200mg PO qam and 600mg PO qhs. She remains symptomatic with passive SI but is reluctant to agree to further ECT. Will advise patient to consider her options, including [facility]. Continue to treat. Continued Medication Management: Different Medication Medications: Current Medications Acetaminophen (Tylenol Tab*) 650 mg PO Q4H PRN PRN Reason: PAIN or TEMP > 101 F Al Hydrox/Mg Hydrox/Simethicone (Maalox Plus*) 30 ml PO Q4H PRN PRN Reason: INDIGESTION Docusate Sodium (Colace Cap*) 100 mg PO BID [facility] Last Admin: 05/06/17 08:04 Dose: 100 mg Levothyroxine Sodium (Synthroid Tab*) 100 mcg PO DAILY@0600 [facility] Last Admin: 05/06/17 08:03 Dose: 100 mcg Lorazepam (Ativan Tab(*)) 0.5 mg PO BEDTIME [facility] Last Admin: 05/05/17 20:26 Dose: Not Given Multivitamins (Theragran Tab*) 1 tab PO DAILY [facility] Last Admin: 05/06/17 08:04 Dose: 1 tab Quetiapine Fumarate (Seroquel Tab*) 200 mg PO QAM [facility] Last Admin: 05/06/17 08:03 Dose: 200 mg Quetiapine Fumarate (Seroquel Tab*) 600 mg PO BEDTIME [facility] Last Admin: 05/05/17 20:25 Dose: 600 mg Venlafaxine HCl (Effexor Xr Cap*) 225 mg PO DAILY [facility] Last Admin: 05/06/17 08:04 Dose: 225 mg - Discharge Plan Discharge Plan: Inpatient Hospitalization
[2017-05-06] MEDS: QUEtiapine TAB* 300 MG PO SCH (20:50)
[2017-05-06] MEDS: LORazepam TAB(*) 0.5 MG PO SCH (20:53)
[2017-05-07 07:15] LABS: HDL Cholesterol 50.7 mg/dL
[2017-05-07] MEDS: Vitamin THERAPEUTIC TAB PO SCH (08:46)
[2017-05-07] MEDS: Docusate CAP* 100 MG PO SCH ×2 (08:46→21:25)
[2017-05-07] MEDS: Venlafaxine EXT RELEASE CAP* 75 MG PO SCH (08:46)
[2017-05-07] MEDS: QUEtiapine TAB* 100 MG PO SCH (08:46)
[2017-05-07] MEDS: Levothyroxine TAB* 100 MCG TAB PO SCH (08:46)
--- NOTE | 2017-05-07 11:45 | PN ---
Subjective - Subjective Service Type: [id number] Hosp care 15 min low complexity Subjective: Amelia continues to have speech latency and difficulty making her needs known. She appears depressed and paranoid, at one point refusing to speak in the [facility] because her fear that there are listening devices posted there. She admits that others have felt that ECT has been of benefit in the past but she doesn't share this appraisal. She agrees to make some calls to family and other supportive influences in her life to see what they recommend. She makes several passive suicidal statements to the effect that she just wants to "disappear and not come back." Objective - Appearance Appearance: Well Developed/Nourished Dysmorphic Features: No Hygiene: Normal Grooming: Fairly Well Kept - Behavior Psychomotor Activities: Abnormal-Decreased Exhibits Abnormal Movement: No - Attitude and Relatedness Attitude and Relatedness: Withdrawn Eye Contact: Poor - Speech Quality: Unpressured Latencies: Long Quantity: Terse - Mood Patient's Decription of Mood: "Sad" - Affect Observed Affect: Constricted Affect Consistent with: Dysphoria - Thought Process Patient's Thought Process: Impoverished Thought Content: Yes Passive Wish, Yes Paranoid Ideation, No Suicidal Planning, No Homicidal Ideation - Sensorium Experiencing Hallucinations: No, Sensorium is Clear Type of Hallucinations: Visual: No, Auditory: No, Command: No - Level of Consciousness Level of Consciousness: Alert Orientation: Yes Intact, Yes Orientated to Time, Yes Orientated to Place, Yes Orientated to Person - Impulse Control Impulse Control: Poor - Insight and Judgement Insight and Judgement: Impaired - Group Participation Particating in Group Activities: No - Medication Management Medication Management Adherence: Yes Assessment - Assessment Merits Inpatient Hospitalization: For Immediate Safety, For Stabilization Inpatient DSM-IV Dx: Schizoaffective disorder. depressed type; Clinical Impression: 56 y.o. single, white female with a history of schizoaffective DO, depressed type who arrives via 9.45 from [facility] due to depressed mood, paranoia and passive SI. Plan - Plan Treatment Plan: Name: AMELIA CASTRO Birthdate: 1960 [id number] The patient is taking venlafazine 225mg PO qam and quetiapine 200mg PO qam and 600mg PO qhs. She remains symptomatic with passive SI but is reluctant to agree to further ECT. I will initiate the process to have her transferred to the [facility], although if she changes her mind about ECT, we could consider this as an option. Continued Medication Management: Continue Outpt Medication Medications: Current Medications Acetaminophen (Tylenol Tab*) 650 mg PO Q4H PRN PRN Reason: PAIN or TEMP > 101 F Al Hydrox/Mg Hydrox/Simethicone (Maalox Plus*) 30 ml PO Q4H PRN PRN Reason: INDIGESTION Docusate Sodium (Colace Cap*) 100 mg PO BID [facility] Last Admin: 05/07/17 08:46 Dose: 100 mg Levothyroxine Sodium (Synthroid Tab*) 100 mcg PO DAILY@0600 [facility] Last Admin: 05/07/17 08:46 Dose: 100 mcg Lorazepam (Ativan Tab(*)) 0.5 mg PO BEDTIME [facility] Last Admin: 05/06/17 20:53 Dose: Not Given Multivitamins (Theragran Tab*) 1 tab PO DAILY [facility] Last Admin: 05/07/17 08:46 Dose: 1 tab Quetiapine Fumarate (Seroquel Tab*) 200 mg PO QAM [facility] Last Admin: 05/07/17 08:46 Dose: 200 mg Quetiapine Fumarate (Seroquel Tab*) 600 mg PO BEDTIME [facility] Last Admin: 05/06/17 20:50 Dose: 600 mg Venlafaxine HCl (Effexor Xr Cap*) 225 mg PO DAILY [facility] Last Admin: 05/07/17 08:46 Dose: 225 mg - Discharge Plan Discharge Plan: Inpatient Hospitalization Lab Results - Lab Results Lab Results: 05/07/17 05/07/17 06:51 06:51 Hemoglobin A1c 5.7 H Triglycerides 43 Cholesterol 118 LDL Cholesterol 59 HDL Cholesterol 50.7
[2017-05-07] MEDS: LORazepam TAB(*) 0.5 MG PO SCH (21:25)
[2017-05-07] MEDS: QUEtiapine TAB* 300 MG PO SCH (21:25)
[2017-05-08] MEDS: Levothyroxine TAB* 100 MCG TAB PO SCH (07:23)
[2017-05-08] MEDS: Docusate CAP* 100 MG PO SCH ×2 (09:19→21:38)
[2017-05-08] MEDS: Vitamin THERAPEUTIC TAB PO SCH (09:20)
[2017-05-08] MEDS: QUEtiapine TAB* 100 MG PO SCH (09:20)
[2017-05-08] MEDS: Venlafaxine EXT RELEASE CAP* 75 MG PO SCH (09:20)
--- NOTE | 2017-05-08 12:08 | PN ---
Subjective - Subjective Service Type: [id number] Hosp care 15 min low complexity Subjective: The patient states "I feel like I'm programmed to fail." She endorses continued paranoid delusions that she has a recording device implanted in her head and she is guarded and suspicious on the unit. States she has been on quetiapine for years but doesn't feel like it's helping. Has had past trials of ziprasidone, clozapine and risperidone with mixed results. No history of treatment with olanzapine. Denies formal SI but doesn't feel safe. Can't decide on ECT. Still has marked speech latency. Objective - Appearance Appearance: Well Developed/Nourished Dysmorphic Features: No Hygiene: Normal Grooming: Fairly Well Kept - Behavior Psychomotor Activities: Abnormal-Decreased Exhibits Abnormal Movement: No - Attitude and Relatedness Attitude and Relatedness: Needy Eye Contact: Fair - Speech Quality: Unpressured Latencies: Long Quantity: Terse - Mood Patient's Decription of Mood: "Sad" - Affect Observed Affect: Constricted Affect Consistent with: Dysphoria - Thought Process Patient's Thought Process: Impoverished Thought Content: Yes Passive Wish, Yes Paranoid Ideation, No Suicidal Planning, No Homicidal Ideation - Sensorium Experiencing Hallucinations: No, Sensorium is Clear Type of Hallucinations: Visual: No, Auditory: No, Command: No - Level of Consciousness Level of Consciousness: Lethargic Orientation: Yes Intact, Yes Orientated to Time, Yes Orientated to Place, Yes Orientated to Person - Impulse Control Impulse Control: Poor - Insight and Judgement Insight and Judgement: Impaired - Group Participation Particating in Group Activities: Yes - Medication Management Medication Management Adherence: Yes Assessment - Assessment Merits Inpatient Hospitalization: For Immediate Safety, For Stabilization Inpatient DSM-IV Dx: Schizoaffective disorder. depressed type; Clinical Impression: 56 y.o. single, white female with a history of schizoaffective DO, depressed type who arrives via 9.45 from [facility] due to depressed mood, paranoia and passive SI. Plan - Plan Treatment Plan: Name: AMELIA CASTRO Birthdate: 1960 [id number] The patient is taking venlafazine 225mg PO qam and quetiapine 200mg PO qam and 600mg PO qhs. She remains symptomatic with passive SI but is reluctant to agree to further ECT. She is also still quite paranoid. We will start a cross taper from quetiapine to olanzapine, with first low dose of olanzapine given tonight. I will initiate the process to have her transferred to the [facility], although if she changes her mind about ECT, we could consider this as an option. Continued Medication Management: Different Medication Medications: Current Medications Acetaminophen (Tylenol Tab*) 650 mg PO Q4H PRN PRN Reason: PAIN or TEMP > 101 F Al Hydrox/Mg Hydrox/Simethicone (Maalox Plus*) 30 ml PO Q4H PRN PRN Reason: INDIGESTION Docusate Sodium (Colace Cap*) 100 mg PO BID [facility] Last Admin: 05/08/17 09:19 Dose: 100 mg Levothyroxine Sodium (Synthroid Tab*) 100 mcg PO DAILY@0600 [facility] Last Admin: 05/08/17 07:23 Dose: 100 mcg Lorazepam (Ativan Tab(*)) 0.5 mg PO BEDTIME [facility] Last Admin: 05/07/17 21:25 Dose: Not Given Multivitamins (Theragran Tab*) 1 tab PO DAILY [facility] Last Admin: 05/08/17 09:20 Dose: 1 tab Quetiapine Fumarate (Seroquel Tab*) 200 mg PO QAM [facility] Last Admin: 05/08/17 09:20 Dose: 200 mg Quetiapine Fumarate (Seroquel Tab*) 600 mg PO BEDTIME [facility] Last Admin: 05/07/17 21:25 Dose: 600 mg Venlafaxine HCl (Effexor Xr Cap*) 225 mg PO DAILY [facility] Last Admin: 05/08/17 09:20 Dose: 225 mg - Discharge Plan Discharge Plan: Consider Longer Term Tx
[2017-05-08] MEDS ORDERED: QUEtiapine TAB* 300 MG PO SCH ×2 (21:00)
[2017-05-08] MEDS ORDERED: QUEtiapine TAB* 100 MG PO SCH (21:00)
[2017-05-08] MEDS ORDERED: OLANzapine TAB* 5 MG PO SCH (21:00)
[2017-05-08] MEDS: LORazepam TAB(*) 0.5 MG PO SCH (21:39)
[2017-05-09] MEDS: Levothyroxine TAB* 100 MCG TAB PO SCH (07:35)
[2017-05-09] MEDS: Venlafaxine EXT RELEASE CAP* 75 MG PO SCH (08:46)
[2017-05-09] MEDS: Vitamin THERAPEUTIC TAB PO SCH (08:47)
[2017-05-09] MEDS: Docusate CAP* 100 MG PO SCH ×2 (08:47→20:58)
[2017-05-09] MEDS: QUEtiapine TAB* 100 MG PO SCH ×2 (08:47→20:58)
--- NOTE | 2017-05-09 18:04 | PN ---
Subjective - Subjective Service Type: [id number] Hosp care 15 min low complexity Subjective: Patient remains depressed and psychotic with paranoia and latent speech. "I feel like I'd like to change my name. I'm hurting my family and their good name. I don't want them to suffer." She is tolerating the introduction of olanzapine fairly well but still feels symptomatic and unsafe. She cannot contract for safety if discharged, although she denies thoughts/plans of harming herself on the unit. Objective - Appearance Appearance: Well Developed/Nourished Dysmorphic Features: No Hygiene: Normal Grooming: Well Kept - Behavior Psychomotor Activities: Abnormal-Decreased Exhibits Abnormal Movement: No - Attitude and Relatedness Attitude and Relatedness: Withdrawn Eye Contact: Fair - Speech Quality: Unpressured Latencies: Long Quantity: Terse - Mood Patient's Decription of Mood: "Sad" - Affect Observed Affect: Constricted Affect Consistent with: Dysphoria - Thought Process Patient's Thought Process: Impoverished Thought Content: Yes Passive Wish, Yes Paranoid Ideation, No Suicidal Planning, No Homicidal Ideation - Sensorium Experiencing Hallucinations: No, Sensorium is Clear Type of Hallucinations: Visual: No, Auditory: No, Command: No - Level of Consciousness Level of Consciousness: Alert Orientation: Yes Intact, Yes Orientated to Time, Yes Orientated to Place, Yes Orientated to Person - Impulse Control Impulse Control: Poor - Insight and Judgement Insight and Judgement: Impaired - Group Participation Particating in Group Activities: Yes - Medication Management Medication Management Adherence: Yes Assessment - Assessment Merits Inpatient Hospitalization: For Immediate Safety, For Stabilization Inpatient DSM-IV Dx: Schizoaffective disorder. depressed type; Clinical Impression: 56 y.o. single, white female with a history of schizoaffective DO, depressed type who arrives via .45 from [facility] due to depressed mood, paranoia and passive SI. Plan - Plan Treatment Plan: Name: AMELIA CASTRO Birthdate: 1960 [id number] The patient is in the middle of a cross-titration from quetiapine to olanzapine therapies. She's also taking venlafazine 225mg PO qam. We will reduce quetiapine to 200mg PO BIB and increase olanzapine to 10mg PO qhs. She remains symptomatic with passive SI but is reluctant to agree to further ECT. She is also still quite paranoid. Await referral to the [facility]. Continued Medication Management: Different Medication Medications: Current Medications Acetaminophen (Tylenol Tab*) 650 mg PO Q4H PRN PRN Reason: PAIN or TEMP > 101 F Al Hydrox/Mg Hydrox/Simethicone (Maalox Plus*) 30 ml PO Q4H PRN PRN Reason: INDIGESTION Docusate Sodium (Colace Cap*) 100 mg PO BID [facility] Last Admin: 05/09/17 08:47 Dose: 100 mg Levothyroxine Sodium (Synthroid Tab*) 100 mcg PO DAILY@0600 [facility] Last Admin: 05/09/17 07:35 Dose: 100 mcg Lorazepam (Ativan Tab(*)) 0.5 mg PO BEDTIME [facility] Last Admin: 05/08/17 21:39 Dose: Not Given Multivitamins (Theragran Tab*) 1 tab PO DAILY [facility] Last Admin: 05/09/17 08:47 Dose: 1 tab Quetiapine Fumarate (Seroquel Tab*) 200 mg PO QAM [facility] Last Admin: 05/09/17 08:47 Dose: 200 mg Venlafaxine HCl (Effexor Xr Cap*) 225 mg PO DAILY [facility] Last Admin: 05/09/17 08:46 Dose: 225 mg - Discharge Plan Discharge Plan: Consider Longer Term Tx
[2017-05-09] MEDS: LORazepam TAB(*) 0.5 MG PO SCH (20:58)
[2017-05-09] MEDS: OLANzapine TAB* 10 MG PO SCH (20:58)
[2017-05-10] MEDS: Vitamin THERAPEUTIC TAB PO SCH (08:49)
[2017-05-10] MEDS: Venlafaxine EXT RELEASE CAP* 75 MG PO SCH (08:49)
[2017-05-10] MEDS: Levothyroxine TAB* 100 MCG TAB PO SCH (08:49)
[2017-05-10] MEDS: QUEtiapine TAB* 100 MG PO SCH ×2 (08:49→21:50)
[2017-05-10] MEDS: Docusate CAP* 100 MG PO SCH ×2 (08:50→21:50)
[2017-05-10] MEDS: OLANzapine TAB* 10 MG PO SCH (21:50)
[2017-05-10] MEDS: LORazepam TAB(*) 0.5 MG PO SCH (21:51)
[2017-05-11] MEDS: Levothyroxine TAB* 100 MCG TAB PO SCH (08:55)
[2017-05-11] MEDS: Vitamin THERAPEUTIC TAB PO SCH (08:55)
[2017-05-11] MEDS: Venlafaxine EXT RELEASE CAP* 75 MG PO SCH (08:55)
[2017-05-11] MEDS: Docusate CAP* 100 MG PO SCH ×2 (08:55→20:47)
[2017-05-11] MEDS: QUEtiapine TAB* 100 MG PO SCH ×2 (08:55→20:47)
[2017-05-11] MEDS: OLANzapine TAB* 10 MG PO SCH (20:47)
[2017-05-11] MEDS: LORazepam TAB(*) 0.5 MG PO SCH (20:48)
[2017-05-12] MEDS: Levothyroxine TAB* 100 MCG TAB PO SCH (09:07)
[2017-05-12] MEDS: Venlafaxine EXT RELEASE CAP* 75 MG PO SCH (09:07)
[2017-05-12] MEDS: QUEtiapine TAB* 100 MG PO SCH (09:07)
[2017-05-12] MEDS: Docusate CAP* 100 MG PO SCH ×2 (09:08→20:42)
[2017-05-12] MEDS: Vitamin THERAPEUTIC TAB PO SCH (09:09)
--- NOTE | 2017-05-12 15:27 | PN ---
Subjective - Subjective Service Type: [id number] Hosp care 15 min low complexity Subjective: The patient is blocked, tearful and actively hallucinating. She appears to be tolerating olanzapine well but is still acutely symptomatic of both depression and psychosis. She can be upsetting to peers on the milieu due to overly close personal and physical boundaries. She denies acute SI but feels would be welcome. Objective - Appearance Appearance: Well Developed/Nourished Dysmorphic Features: No Hygiene: Normal Grooming: Fairly Well Kept - Behavior Psychomotor Activities: Abnormal-Decreased Exhibits Abnormal Movement: No - Attitude and Relatedness Attitude and Relatedness: Withdrawn Eye Contact: Poor - Speech Quality: Unpressured Latencies: Long Quantity: Terse - Mood Patient's Decription of Mood: "Sad" - Affect Observed Affect: Constricted Affect Consistent with: Dysphoria - Thought Process Patient's Thought Process: Impoverished Thought Content: Yes Passive Wish, Yes Paranoid Ideation, No Suicidal Planning, No Homicidal Ideation - Sensorium Experiencing Hallucinations: Yes Type of Hallucinations: Visual: No, Auditory: Yes, Command: No - Level of Consciousness Level of Consciousness: Alert Orientation: Yes Intact, Yes Orientated to Time, Yes Orientated to Place, Yes Orientated to Person - Impulse Control Impulse Control: Poor - Insight and Judgement Insight and Judgement: Impaired - Group Participation Particating in Group Activities: Yes - Medication Management Medication Management Adherence: Yes Assessment - Assessment Merits Inpatient Hospitalization: For Immediate Safety, For Stabilization Inpatient DSM-IV Dx: Schizoaffective disorder. depressed type; Clinical Impression: 56 y.o. single, white female with a history of schizoaffective DO, depressed type who arrives via 9.45 from [facility] due to depressed mood, paranoia and passive SI. Plan - Plan Treatment Plan: Name: AMELIA CASTRO Birthdate: 1960 [id number] The patient is in the middle of a cross-titration from quetiapine to olanzapine therapies. She's also taking venlafazine 225mg PO qam. We will reduce quetiapine to 200mg PO qday and increase olanzapine to 15mg PO qhs. She remains symptomatic with passive SI but is reluctant to agree to further ECT. She is also still quite paranoid and now hallucinating. Await referral to the [facility]. Continued Medication Management: Different Medication Medications: Current Medications Acetaminophen (Tylenol Tab*) 650 mg PO Q4H PRN PRN Reason: PAIN or TEMP > 101 F Al Hydrox/Mg Hydrox/Simethicone (Maalox Plus*) 30 ml PO Q4H PRN PRN Reason: INDIGESTION Docusate Sodium (Colace Cap*) 100 mg PO BID [facility] Last Admin: 05/12/17 09:08 Dose: Not Given Levothyroxine Sodium (Synthroid Tab*) 100 mcg PO DAILY@0600 [facility] Last Admin: 05/12/17 09:07 Dose: 100 mcg Lorazepam (Ativan Tab(*)) 0.5 mg PO BEDTIME [facility] Last Admin: 05/11/17 20:48 Dose: Not Given Multivitamins (Theragran Tab*) 1 tab PO DAILY [facility] Last Admin: 05/12/17 09:09 Dose: Not Given Olanzapine (Zyprexa Tab*) 15 mg PO BEDTIME [facility] Quetiapine Fumarate (Seroquel Tab*) 200 mg PO QAM [facility] Last Admin: 05/12/17 09:07 Dose: 200 mg Venlafaxine HCl (Effexor Xr Cap*) 225 mg PO DAILY [facility] Last Admin: 05/12/17 09:07 Dose: 225 mg - Discharge Plan Discharge Plan: Consider Longer Term Tx
[2017-05-12] MEDS: LORazepam TAB(*) 0.5 MG PO SCH (20:42)
[2017-05-12] MEDS ORDERED: OLANzapine TAB* 5 MG PO SCH (21:00)
[2017-05-13] MEDS: Vitamin THERAPEUTIC TAB PO SCH (08:38)
[2017-05-13] MEDS: Levothyroxine TAB* 100 MCG TAB PO SCH (08:38)
[2017-05-13] MEDS: Venlafaxine EXT RELEASE CAP* 75 MG PO SCH (08:39)
[2017-05-13] MEDS: QUEtiapine TAB* 100 MG PO SCH (08:39)
[2017-05-13] MEDS: Docusate CAP* 100 MG PO SCH ×2 (08:39→21:27)
--- NOTE | 2017-05-13 13:21 | PN ---
Subjective - Subjective Service Type: [id number] Hosp care 15 min low complexity Subjective: Patient continues to endorse symptoms of psychotic depression. Continues to make odd statements to the effect that she has somehow let her family down and is irreparably broken. She is tolerating her changes in meds well but is not doing well and cannot contract for safety. Objective - Appearance Appearance: Well Developed/Nourished Dysmorphic Features: No Hygiene: Normal Grooming: Well Kept - Behavior Psychomotor Activities: Abnormal-Decreased Exhibits Abnormal Movement: No - Attitude and Relatedness Attitude and Relatedness: Psychotically Related Eye Contact: Fair - Speech Quality: Unpressured Latencies: Long Quantity: Terse - Mood Patient's Decription of Mood: "Terrible" - Affect Observed Affect: Tearful Affect Consistent with: Dysphoria - Thought Process Patient's Thought Process: Circumstantial Thought Content: Yes Passive Wish, Yes Paranoid Ideation, No Suicidal Planning, No Homicidal Ideation - Sensorium Experiencing Hallucinations: Yes Type of Hallucinations: Visual: No, Auditory: Yes, Command: No - Level of Consciousness Level of Consciousness: Alert Orientation: Yes Intact, Yes Orientated to Time, Yes Orientated to Place, Yes Orientated to Person - Impulse Control Impulse Control: Poor - Insight and Judgement Insight and Judgement: Impaired - Group Participation Particating in Group Activities: Yes - Medication Management Medication Management Adherence: Yes Assessment - Assessment Merits Inpatient Hospitalization: For Immediate Safety, For Stabilization Inpatient DSM-IV Dx: Schizoaffective disorder. depressed type; Clinical Impression: 56 y.o. single, white female with a history of schizoaffective DO, depressed type who arrives via 9.45 from [facility] due to depressed mood, paranoia and passive SI. Plan - Plan Treatment Plan: Name: AMELIA CASTRO Birthdate: 1960 [id number] The patient is in the middle of a cross-titration from quetiapine to olanzapine therapies. She's also taking venlafazine 225mg PO qam. She remains symptomatic with passive SI and psychosis but is reluctant to agree to further ECT. We will discontinue quetiapine completely and increase olanzapine to 10mg PO BID. In addition, we will increase venlafaxine to 300mg PO qam. Await referral to the [facility]. Continued Medication Management: Different Medication Medications: Current Medications Acetaminophen (Tylenol Tab*) 650 mg PO Q4H PRN PRN Reason: PAIN or TEMP > 101 F Al Hydrox/Mg Hydrox/Simethicone (Maalox Plus*) 30 ml PO Q4H PRN PRN Reason: INDIGESTION Docusate Sodium (Colace Cap*) 100 mg PO BID [facility] Last Admin: 05/13/17 08:39 Dose: Not Given Levothyroxine Sodium (Synthroid Tab*) 100 mcg PO DAILY@0600 [facility] Last Admin: 05/13/17 08:38 Dose: 100 mcg Lorazepam (Ativan Tab(*)) 0.5 mg PO BEDTIME [facility] Last Admin: 05/12/17 20:42 Dose: Not Given Multivitamins (Theragran Tab*) 1 tab PO DAILY [facility] Last Admin: 05/13/17 08:38 Dose: 1 tab - Discharge Plan Discharge Plan: Consider Longer Term Tx
[2017-05-13] MEDS: OLANzapine TAB* 10 MG PO SCH (21:25)
[2017-05-13] MEDS: LORazepam TAB(*) 0.5 MG PO SCH (21:26)
[2017-05-14 07:49] VITALS: BP 123/87
[2017-05-14] MEDS: Levothyroxine TAB* 100 MCG TAB PO SCH (08:30)
[2017-05-14] MEDS: Docusate CAP* 100 MG PO SCH (08:30)
[2017-05-14] MEDS: Vitamin THERAPEUTIC TAB PO SCH (08:30)
[2017-05-14] MEDS: OLANzapine TAB* 10 MG PO SCH (08:30)
[2017-05-14] MEDS ORDERED: Venlafaxine EXT RELEASE CAP* 75 MG PO SCH (09:00)
--- NOTE | 2017-05-15 03:12 | DS ---
DISCHARGE SUMMARY: DATE OF ADMISSION: 05/02/17 DATE OF DISCHARGE: 05/14/17 DISCHARGE DIAGNOSES: Georgiana I: Schizoaffective disorder, bipolar type. Georgiana II: Deferred. Georgiana III: Hypothyroidism. Georgiana IV: Severe primary support stressors. Georgiana V: At the time of admission was 41 and at the time of discharge is 46. CONDITION AT THE TIME OF DISCHARGE: Guarded. The patient remains depressed with neurovegetative symptoms as well as psychotic with delusions and hallucinations. She has tolerated her change in medications by virtue of an increase in her venlafaxine dose and a switch in antipsychotic therapies from quetiapine to olanzapine but unfortunately she has shown only the most minimal evidence of improvement. She is still symptomatic and warranting longer term inpatient psychiatric treatment. For this reason, we have determined to transfer her to the [facility] in [place], [place], and the patient is agreeable with this transfer. MENTAL STATUS EXAMINATION: At the time of discharge, the patient is a middle- aged white female with long dark hair wearing eye glasses. She is dressed in a fortune sweater draped over a blue shirt with jeans. She has a fairly good posture , makes relatively good eye contact. She is calm and cooperative. Speech shows considerable latency with very little spontaneous speech. Mood is depressed with a constricted affect. Thought process reveals some evidence of slowed rate and thought blocking. Thought content is significant for feelings of hopelessness as well as paranoia to the effect that she believes that her head has been implanted with recording devices. She is paranoid and experiencing auditory hallucinations. She does endorse passive suicidal ideations with no specific plan. She denies homicidality. Insight and judgment are fair given her willingness to be transferred to longer-term care at [facility]. Cognitively she is awake and alert with what would appear to be an average intellect. DISCHARGE INSTRUCTIONS: To the patient are as follows: A. Medications: She is currently taking Colace 100 mg p.o. b.i.d., Ativan 0.5 mg p.o. q.h.s., Synthroid 100 mcg p.o. daily, olanzapine 10 mg p.o. b.i.d., venlafaxine XR 300 mg p.o. daily, and therapeutic multivitamin once daily. B. Diet is regular. C. Activities: As tolerated. The patient is a nonsmoker. There are no laboratory or diagnostic studies pending at the time of discharge. D. Followup care: The patient will be a direct transfer to the [facility] and they will be responsible for all her outpatient appointments at her time of discharge from that facility. HOSPITAL COURSE: A. Reason for admission: The patient is a 56-year-old single white female with a history of chronic schizoaffective disorder, who was sent in on a 9.45 legal status from the [facility] where she presented as extremely depressed, paranoid and threatening to overdose on medications. Furthermore, she was stating that she wanted to fall asleep and not wake up. My understanding is that the patient had been transferred back in November 2016 from our behavioral science unit to the psychiatric unit at [facility] where she was slated to receive course of ECT treatment. According to the patient, she received several weeks of inpatient ECT and was then discharged back to the [facility] ED where the plan was for her to get maintenance ECT once weekly. She apparently did not adhere with this plan and has not received further ECT treatment since February of this year. When asked to explain the situation she indicates that the ECT gave her very bad memory problems and she was not interested in continuing it at the time of admission. The patient endorsed multiple symptoms of mental illness including feeling sad, tearful, overwhelmed and paranoid. She endorsed some delusional thoughts to the extent that her neighbors have been eavesdropping on her. She did have a past history of suicide attempt via overdose and was unwilling to contract for safety in our ED. When asked about social stressors, she indicated that her boyfriend, Tevin, is significantly older than her and that his health has been poor and is significantly declining. She also indicated that they had been planning to visit her father in [place], [place] because her father's current spouse is endorsing that her father has been drinking and has been diagnosed with cancer. In addition, her brother lives in [place] as well and he has been abusing substances and being behaviorally out of control. The patient feels extremely concerned about these issues and wishes that she could be in [place] to help them but does not feel that she can travel with her boyfriend in his current state. She also endorses feelings of low energy, hopelessness, helplessness, worthlessness, and lethargy. She reported these symptoms to her outpatient therapist, Rosaila Kingston, at [facility] and we sent promptly to the ED for further evaluation. B. Psychiatric treatment rendered: The patient was admitted to the adult behavioral health unit where she was placed on q.15 minute checks for her own safety. We continued her therapy with venlafaxine XR, but increased it initially from 150 mg to 225 mg. When this did not seem to benefit her mood, we further increased it from 225 mg to 300 mg daily. Although she tolerated this well, there was no evidence of very much antidepressant benefit by the time we discharged her. In addition, the patient was psychotic complaining of auditory hallucinations as well as paranoid delusions. She was often seen responding to internal stimuli and was almost routinely experiencing thought blocking and speech latencies. It was clear that her quetiapine was not particularly beneficial for these symptoms and therefore we did a cross titration by gently taking her off quetiapine and replacing this with incrementally larger doses of olanzapine. Ultimately, she is currently taking 10 mg of olanzapine p.o. b.i.d., which she appears to be tolerating well but again has only had limited efficacy. The patient often complained of issues with her family throughout her hospitalization, although was not clear whether this was delusional material versus rooted in reality. She was active on the unit, participating in arts and crafts as well as milieu activities such as therapeutic group programming. She spoke with her boyfriend, Tevin, on the phone periodically and she was compliant throughout with medications and other treatment modalities. The patient was a pleasure to work with, but unfortunately we could not get her doing better. She remained dysthymic and psychotic at her time of discharge. We did broach the topic of further ECT treatments but she steadfastly declined these indicating that they had resulted in significant cognitive impairment. At this time, we feel like the longer term setting of [facility] would be warranted and we feel that this is her best opportunity to get back to a euthymic nonpsychotic state. [id number]/[facility] #: [id number]
== END 2017-05-14 17:12 | DRG 750 ==
LOC: ED 15:39 → BSU 05-02 12:15
PROVIDERS: ADMIT Psychiatry & Neurology Psychiatry; ATTEND Psychiatry & Neurology Psychiatry
DX: F25.0 Schizoaffective disorder, bipolar type (principal); F22 Delusional disorders; E03.9 Hypothyroidism, unspecified; F32.9 Major depressive disorder, single episode, unspecified; F41.0 Panic disorder [episodic paroxysmal anxiety]; F28 Other psychotic disorder not due to a substance or known physiological condition; R40.2412 Glasgow coma scale score 13-15, at arrival to emergency department; Z91.5 Personal history of self-harm; Z88.6 Allergy status to analgesic agent; Z88.1 Allergy status to other antibiotic agents; Z88.0 Allergy status to penicillin; Z88.8 Allergy status to other drugs, medicaments and biological substances; Z81.8 Family history of other mental and behavioral disorders; Z56.0 Unemployment, unspecified; Z91.19 Patient's noncompliance with other medical treatment and regimen
CPT/HCPCS: 36415; 80053; 80061; 80307; 80320; 80329; 81003; 83036; 84443; 84702; 85025; 99222; 99231; 99238; A9270-GY; G0480

== ENCOUNTER 2020-10-22 11:22 | Inpatient (IN) ==
[2020-10-22 14:10] LABS: ABS Lymphocytes 1.3 10^3/ul (1.0-4.8); ABS Monocytes 0.3 10^3/ul (0-0.8); ABS Neutrophils 3.3 10^3/ul (1.5-7.7); Hematocrit 38 % (35-47); Hemoglobin 12.7 g/dL (12.0-16.0); Lymphocyte % 26.3 %; Mean Corpuscular HGB Conc 34 g/dL (31-36); Mean Corpuscular Hemoglobin 27 pg (27-31); Mean Corpuscular Volume 82 fL (80-97); Mean Platelet Volume 7.4 fL (7.4-10.4); Platelet Count 284 10^3/uL (150-450); Red Blood Count 4.62 10^6 /uL (3.70-4.87); Red Cell Distribution Width 13 % (10-15)
[2020-10-22 14:26] LABS: ALT 13 U/L (7-52); AST 17 U/L (13-39); Albumin 4.2 g/dL (3.2-5.2); Albumin/Globulin Ratio 1.9 (1-3); Alkaline Phosphatase 57 U/L (34-104); Anion Gap 6 mmol/L (2-11); BUN/Creatinine Ratio 9.5 (8-20); Blood Urea Nitrogen 6 mg/dL (6-24); CO2 Carbon Dioxide 27 mmol/L (22-32); Calcium 9.7 mg/dL (8.6-10.3); Chloride 101 mmol/L (101-111); EGFR Non-African American 96.7 (>60); Globulin 2.2 g/dL (2-4); Glucose 143 mg/dL (70-100); Potassium 3.8 mmol/L (3.5-5.0); Sodium 134 mmol/L (135-145); Total Protein 6.4 g/dL (6.4-8.9)
[2020-10-22 15:00] LABS: Acetaminophen < 15 mcg/mL; Alcohol, S < 10 mg/dL (<10); Salicylate < 2.50 mg/dL (<30)
[2020-10-22 15:15] LABS: TSH Ultra Thyroid Stim Horm 1.48 mcIU/mL (0.34-5.60)
[2020-10-22 15:17] LABS: Free T4 1.31 ng/dL (0.61-1.12)
[2020-10-22 15:56] LABS: Urine Benzodiazepine Screen None Detected (None Detect); Urine Cannabinoids Screen None Detected (None Detect); Urine Opiates Screen None Detected (None Detect)
[2020-10-22 16:05] LABS: Urine Appearance Clear; Urine Bilirubin Negative (Negative); Urine Blood Negative (Negative); Urine Color Straw; Urine Glucose Negative (Negative); Urine Ketones Trace (Negative); Urine Nitrite Negative (Negative); Urine Protein Negative (Negative); Urine Specific Gravity 1.002 (1.010-1.030); Urine Urobilinogen Negative (Negative)
[2020-10-22] MEDS ORDERED: Al Hydrox/Mg Hydrox/Simet LIQ 30 ML UDC PO PRN (16:46)
[2020-10-22] MEDS ORDERED: Nicotine GUM 2MG FRUIT FLAVOR PO PRN (17:00)
[2020-10-23] MEDS: Vitamin THERAPEUTIC TAB PO SCH ×2 (10:49→10:55)
[2020-10-23] MEDS ORDERED: OLANzapine 5 mg TAB*ODT PO PRN (12:24)
[2020-10-23] MEDS: OLANzapine 5 mg TAB*ODT PO SCH (12:44)
[2020-10-23] MEDS: Venlafaxine XR 75 mg PO SCH (13:47)
[2020-10-24] MEDS: Venlafaxine XR 75 mg PO SCH (08:53)
[2020-10-24] MEDS: Vitamin THERAPEUTIC TAB PO SCH (08:53)
[2020-10-24] MEDS: OLANzapine 5 mg TAB*ODT PO SCH ×2 (08:53→20:19)
[2020-10-25] MEDS: Venlafaxine XR 75 mg PO SCH (10:42)
[2020-10-25] MEDS: OLANzapine 5 mg TAB*ODT PO SCH ×2 (10:42→21:02)
[2020-10-25] MEDS: Vitamin THERAPEUTIC TAB PO SCH (10:42)
[2020-10-26] MEDS: Venlafaxine XR 75 mg PO SCH (08:33)
[2020-10-26] MEDS: OLANzapine 5 mg TAB*ODT PO SCH ×2 (08:33→22:18)
[2020-10-26] MEDS: Vitamin THERAPEUTIC TAB PO SCH (08:34)
[2020-10-26 08:37] LABS: HDL Cholesterol 47.9 mg/dL
[2020-10-27] MEDS: OLANzapine 5 mg TAB*ODT PO SCH ×2 (08:17→22:36)
[2020-10-27] MEDS: Vitamin THERAPEUTIC TAB PO SCH (08:17)
[2020-10-27] MEDS: Venlafaxine XR 75 mg PO SCH (08:17)
[2020-10-28] MEDS: Venlafaxine XR 75 mg PO SCH (14:11)
[2020-10-28] MEDS: OLANzapine 5 mg TAB*ODT PO SCH ×2 (14:11→20:42)
[2020-10-28] MEDS: Vitamin THERAPEUTIC TAB PO SCH (14:11)
[2020-10-29] MEDS: OLANzapine 5 mg TAB*ODT PO SCH ×2 (12:14→19:51)
[2020-10-29] MEDS: Vitamin THERAPEUTIC TAB PO SCH (12:14)
[2020-10-29] MEDS: Venlafaxine XR 75 mg PO SCH (12:14)
[2020-10-30] MEDS: OLANzapine 5 mg TAB*ODT PO SCH ×2 (09:21→21:29)
[2020-10-30] MEDS: Venlafaxine XR 75 mg PO SCH (09:21)
[2020-10-30] MEDS: Vitamin THERAPEUTIC TAB PO SCH (09:22)
[2020-10-31] MEDS: OLANzapine 5 mg TAB*ODT PO SCH ×2 (12:48→20:37)
[2020-10-31] MEDS: Vitamin THERAPEUTIC TAB PO SCH (12:48)
[2020-10-31] MEDS: Venlafaxine XR 75 mg PO SCH (12:48)
[2020-11-01] MEDS: Venlafaxine XR 75 mg PO SCH (09:43)
[2020-11-01] MEDS: OLANzapine 5 mg TAB*ODT PO SCH (09:43)
[2020-11-01] MEDS: Vitamin THERAPEUTIC TAB PO SCH (09:43)
[2020-11-02] MEDS: Venlafaxine XR 75 mg PO SCH (11:04)
[2020-11-02] MEDS: Vitamin THERAPEUTIC TAB PO SCH (11:04)
[2020-11-03] MEDS: Vitamin THERAPEUTIC TAB PO SCH (10:03)
[2020-11-03] MEDS: Venlafaxine XR 75 mg PO SCH (10:03)
[2020-11-03] MEDS ORDERED: Polyethylene Glycol 3350 17 GM PACKET PO PRN (15:03)
[2020-11-04] MEDS: Vitamin THERAPEUTIC TAB PO SCH (08:49)
[2020-11-04] MEDS: Venlafaxine XR 75 mg PO SCH (08:50)
[2020-11-05] MEDS: Vitamin THERAPEUTIC TAB PO SCH (08:46)
[2020-11-05] MEDS: Venlafaxine XR 75 mg PO SCH (08:46)
[2020-11-06] MEDS: Vitamin THERAPEUTIC TAB PO SCH (09:24)
[2020-11-06] MEDS: Venlafaxine XR 75 mg PO SCH (09:24)
[2020-11-07] MEDS: Venlafaxine XR 75 mg PO SCH (09:58)
[2020-11-07] MEDS: Vitamin THERAPEUTIC TAB PO SCH (09:58)
[2020-11-08] MEDS: Venlafaxine XR 75 mg PO SCH (09:22)
[2020-11-08] MEDS: Vitamin THERAPEUTIC TAB PO SCH (09:22)
[2020-11-09] MEDS: Venlafaxine XR 75 mg PO SCH (10:30)
[2020-11-09] MEDS: Vitamin THERAPEUTIC TAB PO SCH (10:30)
[2020-11-10] MEDS: Vitamin THERAPEUTIC TAB PO SCH (09:07)
[2020-11-10] MEDS: Venlafaxine XR 75 mg PO SCH (09:07)
[2020-11-11] MEDS: Vitamin THERAPEUTIC TAB PO SCH (09:11)
[2020-11-11] MEDS: Venlafaxine XR 75 mg PO SCH (09:11)
[2020-11-12] MEDS: Venlafaxine XR 75 mg PO SCH (08:50)
[2020-11-12] MEDS: Vitamin THERAPEUTIC TAB PO SCH (08:50)
[2020-11-13] MEDS: Vitamin THERAPEUTIC TAB PO SCH (08:54)
[2020-11-13] MEDS: Venlafaxine XR 75 mg PO SCH (08:54)
[2020-11-14] MEDS: Venlafaxine XR 75 mg PO SCH (08:41)
[2020-11-14] MEDS: Vitamin THERAPEUTIC TAB PO SCH (08:41)
[2020-11-15] MEDS: Venlafaxine XR 75 mg PO SCH (08:51)
[2020-11-15] MEDS: Vitamin THERAPEUTIC TAB PO SCH (08:51)
[2020-11-16] MEDS: Venlafaxine XR 75 mg PO SCH (08:33)
[2020-11-16] MEDS: Vitamin THERAPEUTIC TAB PO SCH (08:33)
[2020-11-17 08:12] VITALS: BP 134/71
[2020-11-17] MEDS: Vitamin THERAPEUTIC TAB PO SCH (08:31)
[2020-11-17] MEDS: Venlafaxine XR 75 mg PO SCH (08:31)
== END 2020-11-17 09:20 | DRG 750 ==
LOC: ED 11:22 → BSU 16:54
PROVIDERS: ADMIT Psychiatry & Neurology Psychiatry; ATTEND Psychiatry & Neurology Psychiatry